=== PATIENT | female | born 1940 | race Caucasian/White ===

== ENCOUNTER 2017-02-12 17:02 | Emergency (ER) | payer OTHER, MEDICARE ==
--- NOTE | 2017-02-12 19:52 | DIAGNOSTIC IMAGING REPORT ---
PROCEDURE: CT ABDOMEN/PELVIS W/O CONTRAST INDICATION: Left flank pain and hematuria. History of cholecystectomy, splenectomy, hysterectomy, and bowel resection. TECHNIQUE: Noncontrast axial images were obtained of the entire abdomen and pelvis with sagittal and coronal reformations. COMPARISON: None. FINDINGS: ABDOMEN: There is mild dilation of the left renal collecting system, although left ureter appears normal (partially obscured by metal surgical clips). Right kidney and ureter are normal. Cholecystectomy (surgical clips). Liver is normal. Status post splenectomy with mild residual splenosis. Pancreas and aorta are normal. Small hiatal hernia. Bowel pattern is otherwise normal. Appendix is not clearly identified, but no evidence of inflammatory process). Mild levoscoliosis and marked degenerative changes of the lumbar spine. PELVIS: Moderate upper sigmoid diverticulosis, but no evidence of diverticulitis. Status post hysterectomy. Multiple surgical clips within the pelvis. No evidence of free fluid. IMPRESSION: 1. Left ureter is partially obscured by metal surgical clips. Allowing for this, there is no definite evidence of urinary tract obstruction. 2. Status post cholecystectomy and splenectomy. 3. Small hiatal hernia. 4. Moderate upper sigmoid diverticulosis, but no evidence of diverticulitis. 5. Status post hysterectomy. 6. Findings discussed with JIMMY uMse. All CT scans at this facility use dose modulation, iterative reconstruction, and/or weight-based dosing when appropriate to reduce radiation dose to as low as reasonably achievable.
--- NOTE | 2017-02-12 20:25 | ED ORDER SUMMARY ---
..... Patient: NICOLE LALA OrderSheet [facility] VisitID: [id number] [place] [address] 76y, F Registration Date/Time: 02/12/2017 ORDER SHEET Weight: 109.7 kg (stated) Allergies: Codeine, Gentamicin, Iodine, Vancomycin GENERAL ORDERS: CBC w Diff Urgent (18:05 02/12/2017 EKoroleva P.A.-C) (18:15 KWilliams R.N.) CMP Urgent (18:05 02/12/2017 EKoroleva P.A.-C) (18:15 KWilliams R.N.) UA-Culture if indicated Urgent (18:05 02/12/2017 EKoroleva P.A.-C) (Ack 18:41 RKaruga) (19:04 LSullivan R.N.) Lipase Urgent (18:05 02/12/2017 EKoroleva P.A.-C) (18:15 KWilliams R.N.) EKG - ER Stat (18:05 02/12/2017 EKoroleva P.A.-C) (18:59 RKaruga) CT Abd/Pel wo Cont Urgent (18:51 02/12/2017 EKoroleva P.A.-C) (Ack 19:02 RKaruga) (19:08 RFay) PT with INR Urgent (19:03 02/12/2017 EKoroleva P.A.-C) (19:04 LSullivan R.N.) PTT Urgent (19:03 02/12/2017 EKoroleva P.A.-C) (19:04 LSullivan R.N.) MEDICATION ORDERS: IV FLUIDS: IV Saline Lock (17:51 02/12/2017 LSullivan R.N. verbal order read back to Shikha SUERO) (17:51 LSullivan R.N.) IV Saline Lock (18:05 02/12/2017 EKoroleva P.A.-C) (Cancelled: Other18:11 EKoroleva P.A.-C) Dilaudid IV 0.5 mg (HIGH ALERT MEDICATION, NOW) (18:11 02/12/2017 Alfredo Smith-Sahil) (18:27 LSullivan R.N.) Ceftriaxone IV 2 gm/50mL (NOW) (19:54 02/12/2017 Alfredo Smith-C) (Ack 20:06 HSoule) (20:06 TBowen R.N.) Dilaudid IV 0.5 mg (HIGH ALERT MEDICATION, NOW) (20:08 02/12/2017 Alfredo High.Nivia-C) (20:15 TBowen R.N.) ORDER SHEET NOTES: [Electronically signed by Delilah Reid R.N. (20:38 02/12/2017)] [Electronically signed by Mayte Meyer P.A.-C (20:49 02/12/2017)] [Electronically locked/signed by Delilah Reid R.N. (20:38 02/12/2017)]
--- NOTE | 2017-02-12 20:25 | ED NURSING NOTES ---
Clinical Report - Nurses [address] [address] [place] [address] 02/12/2017 17:06 Patient: NICOLE LALA TRIAGE Triage time 17:28. Acuity: LEVEL 3. Chief Complaint: LEFT-SIDED FLANK PAIN (radiates to front pelvic area). Alert. --17:35 Samanta Novak R.N. 17:28 02/12/17. BP: 140/83. HR: 73. RR: 18. O2 saturation: 95%. Temp: 97.4 F. Pain level now: 05/16. --17:35 Samanta Novak R.N. Weight: 109.7 kg stated. Height/Length: 65 inches Per Patient. BMI: 40.3. --17:35 Samanta Novak R.N. Medications Warfarin Sodium Oral 5 mg, daily, for DVT, PE. --17:31 Samanta Novak R.N. Sertraline HCl Oral (Tablet 100 mg) 1 tablet, 1.5x/day. --18:11 Janelle Liu R.N. Hydrocodone-Acetaminophen Oral (Tablet 5-325 mg) 1 tablet, 3x a day as needed. --18:11 Janelle Liu R.N. Albuterol Sulfate HFA Inhalation 2 puffs, q 4-6 h as needed. --18:16 aJnelle Liu R.N. Atenolol Oral (Tablet 25 mg) 1 tablet, daily. --18:17 Janelle Liu R.N. Methocarbamol Oral (Tablet 750 mg) 1 tablet, as needed. --18:17 Janelle Liu R.N. Furosemide Oral (Tablet 20 mg) 1 tablet, daily. --18:17 Janelle Liu R.N. Potassium Chloride Oral 10 meq, daily. --18:18 Janelle Liu R.N. [place] 3 Oral. --18:18 Janelle Liu R.N. Cyanocobalamin Oral (Lozenge 5000 mcg). --18:18 Janelle Liu R.N. Loperamide HCl Oral (Tablet 2 mg) 1 tablet, daily. --18:18 Janelle Liu R.N. Gatifloxacin Ophthalmic (Solution 0.5 %), as needed. --18:19 Janelle Liu R.N. Prochlorperazine Maleate Oral (Tablet 10 mg) 1 tablet, 3x a day as needed. --18:21 Janelle Liu R.N. Cholecalciferol Oral (Tablet 2000 unit) 1 tablet, as needed. --18:22 Janelle Liu R.N. Elderberry Oral 2 tabs, daily, cold symptoms. --18:22 Janelle Liu R.N. Vitamin c Oral. --18:22 Janelle Liu R.N. Tolterodine Tartrate Oral (Tablet 1 mg) 1 tablet, 2x a day. --18:23 Janelle Liu R.N. Glycerin-Polysorbate 80 one drop, daily. --18:24 Janelle Liu R.N. Meclizine HCl Oral. --18:24 Janelle Liu R.N. Desonide External (Cream 0.05 %). --18:25 Janelle Liu R.N. Hydrocortisone External (Cream 2.5 %), 2x a day. --18:32 Janelle Liu R.N. The following entry was struck and corrected by Janelle Liu R.N., 18:36 (02/12/17) Reason for correction - other(correction). <<[facility] ENTRY-- Tolterodine Tartrate Oral. --18:23 Janelle Liu R.N. --END STRIKE>> The following entry was struck and corrected by Janelle Liu R.N., 18:36 (02/12/17) Reason for correction - other(correction). <<[facility] ENTRY-- Sertraline HCl Oral. --18:11 Janelle Liu R.N. --END STRIKE>> The following entry was struck and corrected by Janelle Liu R.N., 18:35 (02/12/17) Reason for correction - other(correction). <<[facility] ENTRY-- Prochlorperazine Maleate Oral. --18:21 Janelle Liu R.N. --END STRIKE>> The following entry was struck and corrected by Janelle Liu R.N., 18:35 (02/12/17) Reason for correction - other(correction). <<[facility] ENTRY-- Potassium Chloride Oral. --18:18 Janelle Liu R.N. --END STRIKE>> The following entry was struck and corrected by Janelle Liu R.N., 18:34 (02/12/17) Reason for correction - other(correction). <<[facility] ENTRY-- Methocarbamol Oral. --18:17 Janelle Liu R.N. --END STRIKE>> The following entry was struck and corrected by Janelle Liu R.N., 18:33 (02/12/17) Reason for correction - other(correction). <<[facility] ENTRY-- Loperamide HCl Oral. --18:18 Janelle Liu R.N. --END STRIKE>> The following entry was struck by Janelle Liu R.N., 18:32 (02/12/17) Reason - wrong value. <<[facility] ENTRY-- Hydrocortisone Oral. --18:22 Janelle Liu R.N. --END STRIKE>> The following entry was struck and corrected by Janelle Liu R.N., 18:31 (02/12/17) Reason for correction - other(correction). <<[facility] ENTRY-- Hydrocodone-Acetaminophen Oral. --18:11 Janelle Liu R.N. --END STRIKE>> The following entry was struck and corrected by Janelle Liu R.N., 18:30 (02/12/17) Reason for correction - other(correction). <<[facility] ENTRY-- Glycerin-Polysorbate 80. --18:24 Janelle Liu R.N. --END STRIKE>> The following entry was struck and corrected by Janelle Liu R.N., 18:30 (02/12/17) Reason for correction - other(correction). <<[facility] ENTRY-- Gatifloxacin Ophthalmic. --18:19 Janelle Liu R.N. --END STRIKE>> The following entry was struck and corrected by Janelle Liu R.N., 18:30 (02/12/17) Reason for correction - other(correction). <<[facility] ENTRY-- Furosemide Oral. --18:17 Janelle Liu R.N. --END STRIKE>> The following entry was struck and corrected by Janelle Liu R.N., 18:29 (02/12/17) Reason for correction - other(correction). <<[facility] ENTRY-- Elderberry Oral. --18:22 Janelle Liu R.NAudrey --END STRIKE>> The following entry was struck and corrected by Janelle Liu R.N., 18:28 (02/12/17) Reason for correction - other(correction). <<[facility] ENTRY-- Desonide External. --18:25 Janelle Liu R.N. --END STRIKE>> The following entry was struck and corrected by Janelle Liu R.N., 18:28 (02/12/17) Reason for correction - other(correction). <<[facility] ENTRY-- Cyanocobalamin Oral. --18:18 Janelle Liu R.N. --END STRIKE>> The following entry was struck and corrected by Janelle Liu R.NAudrey, 18:27 (02/12/17) Reason for correction - other(correction). <<[facility] ENTRY-- Cholecalciferol Oral. --18:22 Janelle Liu R.NAudrey --END STRIKE>> The following entry was struck and corrected by Janelle Liu R.N., 18:26 (02/12/17) Reason for correction - other(correction). <<[facility] ENTRY-- Atenolol Oral. --18:17 Alexa, Janelle, R.N. --END STRIKE>> The following entry was struck and corrected by Janelle Liu R.N., 18:25 (02/12/17) Reason for correction - other(correction). <<[facility] ENTRY-- Albuterol Sulfate HFA Inhalation. --18:16 Janelle Liu R.N. --END STRIKE>>. Allergies Codeine. Gentamicin. Iodine. Vancomycin. --17:31 Samanta Novak R.N. History Arrived by private vehicle. Historian: patient. Accompanied by spouse. Primary physician (Fili). This started today. Onset. (at 10am). 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 PAST MEDICAL HX: Immunizations: up-to-date. SOCIAL HX: Never smoker. No alcohol use or drug use. FUNCTIONAL ASSESSMENT: Functional assessment: no impairments noted. LEARNING NEEDS ASSESSMENT: The learning needs assessment revealed no barriers. ABUSE ASSESSMENT: Abuse assessment: ('yes") The patient was asked "Do you feel safe in your home?". --17:35 Samanta Novak R.N. PROBLEMS: Hypertension. Migraine Headache. CHF. Multinodular goiter. Anxiety Reaction. Lumbar spinal stenosis. Impingement syndrome of shoulder region. Gerd. Depression. Pulmonary Embolism. Asplenia. GINNY. Lung nodule. Osteopenia. Asthma. --18:41 Samanta Novak R.N. ADDITIONAL SURGERIES: Appendectomy. Cholecystectomy. Colectomy. Hysterectomy. Knee Surgery. Splenectomy. Tonsillectomy. --18:49 Samanta Novak R.N. Interventions ID band on patient. To room. --17:35 Samanta Novak R.N. NURSING PROGRESS NOTES 17:36 02/12/2017 Site #1 started via IV in the right forearm with an 20g angiocath, with aseptic technique and good blood return; one attempt. Blood drawn: rainbow set. Labeled in the presence of the patient and sent to the lab. Saline lock flushed with 10 mL saline. --17:51 Crystal Pride R.N. 18:17 02/12/2017 Dilaudid (HYDROmorphone HCl PF) IVP 0.5 mg given over 1 minute(s) via site #1. Allergies verified, confirmed 5 rights and sedative warning given. --18:27 Samanta Novak R.N. EKG time: (18:52). EKG was performed and shown to the ED physician. --19:00 Ernestina Vela Patient ID band checked for patient name and birthdate: patient confirmed urine collected with return of yellow-colored urine; sample sent to lab for urinalysis. Specimen labeled in the presence of the patient. --19:09 Ernestina Vela 19:15 02/12/17. Care transferred and report given (to JAIME Mazariegos). --19:15 Samanta Novak R.N. 20:06 02/12/2017 Started 2 gm of Ceftriaxone IVPB in bag #1 50 mL; at 100 mL/hr over 30 minute(s) via site #1 via IV pump. Allergies verified and confirmed 5 rights. IV patency established. IV site checked: no pain, redness, or swelling. IV flushed thoroughly pre- and post-medication administration. --20:06 Goran Matos 20:15 02/12/2017 Dilaudid (HYDROmorphone HCl PF) IVP 0.5 mg given over 1 minute(s) via site #1. Allergies verified, confirmed 5 rights and sedative warning given to the patient. IV patency established. IV site checked: no pain, redness, or swelling. IV flushed thoroughly pre- and post-medication administration. IVP given by RN. --20:15 Goran Matos 20:21 02/12/2017 Ceftriaxone IVPB Discontinued: bag #1 completed. Total amount infused: 50 mL. IV patency established. IV site checked: no pain, redness, or swelling. IV flushed thoroughly. --20:21 Goran Matos DISPOSITION / DISCHARGE 20:36 02/12/2017 Site #1 removed upon discharge. Catheter intact. Bandaid applied. --20:36 Goran Matos Departure time: 20:37. Condition at departure: improved. No learning barriers present. Discharge instructions provided and reviewed with the patient. Reviewed medication(s) side effects, precautions, dosing and course information. Prescription(s) given to the patient. Follow up contact number with PCP. Patient verbalized understanding. Written instructions provided in Mexican. No warning instructions, treatment instructions, referrals given to the patient, diet instructions or activity restrictions. No note given or stop smoking instructions. The patient was discharged by the physician optometry assistant. She was discharged home and accompanied by spouse. She left the Emergency Department in a wheelchair and via private vehicle. Spouse driving. FALL RISK ASSESSMENT: Fall risk assessment completed. No fall risk identified. --20:37 Goran Matos 20:35 02/12/17. BP: 142/62. HR: 78. RR: 18. O2 saturation: 98%. Temp: 98.4 F. Pain level now: 0/10. --20:37 Goran Matos Locked/Released at 02/12/2017 20:38 by Goran Matos
--- NOTE | 2017-02-12 20:25 | ED NURSING NOTES ---
Clinical Report - Nurses [address] [address] [place] [address] 02/12/2017 17:06 Patient: NICOLE LALA TRIAGE Triage time 17:28. Acuity: LEVEL 3. Chief Complaint: LEFT-SIDED FLANK PAIN (radiates to front pelvic area). Alert. --17:35 Samanta Novak R.N. 17:28 02/12/17. BP: 140/83. HR: 73. RR: 18. O2 saturation: 95%. Temp: 97.4 F. Pain level now: 05/16. --17:35 Samanta Novak R.N. Weight: 109.7 kg stated. Height/Length: 65 inches Per Patient. BMI: 40.3. --17:35 Samanta Novak R.N. Medications Warfarin Sodium Oral 5 mg, daily, for DVT, PE. --17:31 Samanta Novak R.N. Sertraline HCl Oral (Tablet 100 mg) 1 tablet, 1.5x/day. --18:11 Janelle Liu R.N. Hydrocodone-Acetaminophen Oral (Tablet 5-325 mg) 1 tablet, 3x a day as needed. --18:11 Janelle Liu R.N. Albuterol Sulfate HFA Inhalation 2 puffs, q 4-6 h as needed. --18:16 Janelle Liu R.N. Atenolol Oral (Tablet 25 mg) 1 tablet, daily. --18:17 Janelle Liu R.N. Methocarbamol Oral (Tablet 750 mg) 1 tablet, as needed. --18:17 Janelle Liu R.N. Furosemide Oral (Tablet 20 mg) 1 tablet, daily. --18:17 Janelle Liu R.N. Potassium Chloride Oral 10 meq, daily. --18:18 Janelle Liu R.N. [place] 3 Oral. --18:18 Janelle Liu R.N. Cyanocobalamin Oral (Lozenge 5000 mcg). --18:18 Janelle Liu R.N. Loperamide HCl Oral (Tablet 2 mg) 1 tablet, daily. --18:18 Janelle Liu R.N. Gatifloxacin Ophthalmic (Solution 0.5 %), as needed. --18:19 Janelle Liu R.N. Prochlorperazine Maleate Oral (Tablet 10 mg) 1 tablet, 3x a day as needed. --18:21 Janelle Liu R.N. Cholecalciferol Oral (Tablet 2000 unit) 1 tablet, as needed. --18:22 Janelle Liu R.N. Elderberry Oral 2 tabs, daily, cold symptoms. --18:22 Janelle Liu R.N. Vitamin c Oral. --18:22 Janelle Liu R.N. Tolterodine Tartrate Oral (Tablet 1 mg) 1 tablet, 2x a day. --18:23 Janelle Liu R.N. Glycerin-Polysorbate 80 one drop, daily. --18:24 Janelle Liu R.N. Meclizine HCl Oral. --18:24 Janelle Liu R.N. Desonide External (Cream 0.05 %). --18:25 Janelle Liu R.N. Hydrocortisone External (Cream 2.5 %), 2x a day. --18:32 Janelle Liu R.N. The following entry was struck and corrected by Janelle Liu R.N., 18:36 (02/12/17) Reason for correction - other(correction). <<[facility] ENTRY-- Tolterodine Tartrate Oral. --18:23 Janelle Liu R.N. --END STRIKE>> The following entry was struck and corrected by Janelle Liu R.N., 18:36 (02/12/17) Reason for correction - other(correction). <<[facility] ENTRY-- Sertraline HCl Oral. --18:11 Janelle Liu R.N. --END STRIKE>> The following entry was struck and corrected by Janelle Liu R.N., 18:35 (02/12/17) Reason for correction - other(correction). <<[facility] ENTRY-- Prochlorperazine Maleate Oral. --18:21 Janelle Liu R.N. --END STRIKE>> The following entry was struck and corrected by Janelle Liu R.N., 18:35 (02/12/17) Reason for correction - other(correction). <<[facility] ENTRY-- Potassium Chloride Oral. --18:18 Janelle Liu R.N. --END STRIKE>> The following entry was struck and corrected by Janelle Liu R.N., 18:34 (02/12/17) Reason for correction - other(correction). <<[facility] ENTRY-- Methocarbamol Oral. --18:17 Janelle Liu R.N. --END STRIKE>> The following entry was struck and corrected by Janelle Liu R.N., 18:33 (02/12/17) Reason for correction - other(correction). <<[facility] ENTRY-- Loperamide HCl Oral. --18:18 Janelle Liu R.N. --END STRIKE>> The following entry was struck by Janelle Liu R.N., 18:32 (02/12/17) Reason - wrong value. <<[facility] ENTRY-- Hydrocortisone Oral. --18:22 Janelle Liu R.N. --END STRIKE>> The following entry was struck and corrected by Janelle Liu R.N., 18:31 (02/12/17) Reason for correction - other(correction). <<[facility] ENTRY-- Hydrocodone-Acetaminophen Oral. --18:11 Janelle Liu R.N. --END STRIKE>> The following entry was struck and corrected by Janelle Liu R.N., 18:30 (02/12/17) Reason for correction - other(correction). <<[facility] ENTRY-- Glycerin-Polysorbate 80. --18:24 Janelle Liu R.N. --END STRIKE>> The following entry was struck and corrected by Janelle Liu R.N., 18:30 (02/12/17) Reason for correction - other(correction). <<[facility] ENTRY-- Gatifloxacin Ophthalmic. --18:19 Janelle Liu R.N. --END STRIKE>> The following entry was struck and corrected by Janelle Liu R.N., 18:30 (02/12/17) Reason for correction - other(correction). <<[facility] ENTRY-- Furosemide Oral. --18:17 Janelle Liu R.N. --END STRIKE>> The following entry was struck and corrected by Janelle Liu R.N., 18:29 (02/12/17) Reason for correction - other(correction). <<[facility] ENTRY-- Elderberry Oral. --18:22 Janelle Liu R.NAudrey --END STRIKE>> The following entry was struck and corrected by Janelle Liu R.N., 18:28 (02/12/17) Reason for correction - other(correction). <<[facility] ENTRY-- Desonide External. --18:25 Janelle Liu R.N. --END STRIKE>> The following entry was struck and corrected by Janelle Liu R.N., 18:28 (02/12/17) Reason for correction - other(correction). <<[facility] ENTRY-- Cyanocobalamin Oral. --18:18 Janelle Liu R.N. --END STRIKE>> The following entry was struck and corrected by Janelle Liu R.NAudrey, 18:27 (02/12/17) Reason for correction - other(correction). <<[facility] ENTRY-- Cholecalciferol Oral. --18:22 Janelle Liu R.NAudrey --END STRIKE>> The following entry was struck and corrected by Janelle Liu R.N., 18:26 (02/12/17) Reason for correction - other(correction). <<[facility] ENTRY-- Atenolol Oral. --18:17 Alexa, Janelle, R.N. --END STRIKE>> The following entry was struck and corrected by Janelle Liu R.N., 18:25 (02/12/17) Reason for correction - other(correction). <<[facility] ENTRY-- Albuterol Sulfate HFA Inhalation. --18:16 Janelle Liu R.N. --END STRIKE>>. Allergies Codeine. Gentamicin. Iodine. Vancomycin. --17:31 Samanta Novak R.N. History Arrived by private vehicle. Historian: patient. Accompanied by spouse. Primary physician (Fili). This started today. Onset. (at 10am). 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 PAST MEDICAL HX: Immunizations: up-to-date. SOCIAL HX: Never smoker. No alcohol use or drug use. FUNCTIONAL ASSESSMENT: Functional assessment: no impairments noted. LEARNING NEEDS ASSESSMENT: The learning needs assessment revealed no barriers. ABUSE ASSESSMENT: Abuse assessment: ('yes") The patient was asked "Do you feel safe in your home?". --17:35 Samanta Novak R.N. PROBLEMS: Hypertension. Migraine Headache. CHF. Multinodular goiter. Anxiety Reaction. Lumbar spinal stenosis. Impingement syndrome of shoulder region. Gerd. Depression. Pulmonary Embolism. Asplenia. GINNY. Lung nodule. Osteopenia. Asthma. --18:41 Samanta Novak R.N. ADDITIONAL SURGERIES: Appendectomy. Cholecystectomy. Colectomy. Hysterectomy. Knee Surgery. Splenectomy. Tonsillectomy. --18:49 Samanta Novak R.N. Interventions ID band on patient. To room. --17:35 Samanta Novak R.N. NURSING PROGRESS NOTES 17:36 02/12/2017 Site #1 started via IV in the right forearm with an 20g angiocath, with aseptic technique and good blood return; one attempt. Blood drawn: rainbow set. Labeled in the presence of the patient and sent to the lab. Saline lock flushed with 10 mL saline. --17:51 Crystal Pride R.N. 18:17 02/12/2017 Dilaudid (HYDROmorphone HCl PF) IVP 0.5 mg given over 1 minute(s) via site #1. Allergies verified, confirmed 5 rights and sedative warning given. --18:27 Samanta Novak R.N. EKG time: (18:52). EKG was performed and shown to the ED physician. --19:00 Ernestina Vela Patient ID band checked for patient name and birthdate: patient confirmed urine collected with return of yellow-colored urine; sample sent to lab for urinalysis. Specimen labeled in the presence of the patient. --19:09 Ernestina Vela 19:15 02/12/17. Care transferred and report given (to JAIME Mazariegos). --19:15 Samanta Novak R.N. 20:06 02/12/2017 Started 2 gm of Ceftriaxone IVPB in bag #1 50 mL; at 100 mL/hr over 30 minute(s) via site #1 via IV pump. Allergies verified and confirmed 5 rights. IV patency established. IV site checked: no pain, redness, or swelling. IV flushed thoroughly pre- and post-medication administration. --20:06 Goran Matos 20:15 02/12/2017 Dilaudid (HYDROmorphone HCl PF) IVP 0.5 mg given over 1 minute(s) via site #1. Allergies verified, confirmed 5 rights and sedative warning given to the patient. IV patency established. IV site checked: no pain, redness, or swelling. IV flushed thoroughly pre- and post-medication administration. IVP given by RN. --20:15 Goran Matos 20:21 02/12/2017 Ceftriaxone IVPB Discontinued: bag #1 completed. Total amount infused: 50 mL. IV patency established. IV site checked: no pain, redness, or swelling. IV flushed thoroughly. --20:21 Goran Matos DISPOSITION / DISCHARGE 20:36 02/12/2017 Site #1 removed upon discharge. Catheter intact. Bandaid applied. --20:36 Goran Matos Departure time: 20:37. Condition at departure: improved. No learning barriers present. Discharge instructions provided and reviewed with the patient. Reviewed medication(s) side effects, precautions, dosing and course information. Prescription(s) given to the patient. Follow up contact number with PCP. Patient verbalized understanding. Written instructions provided in Jamaican. No warning instructions, treatment instructions, referrals given to the patient, diet instructions or activity restrictions. No note given or stop smoking instructions. The patient was discharged by the physician occupational therapy assistant. She was discharged home and accompanied by spouse. She left the Emergency Department in a wheelchair and via private vehicle. Spouse driving. FALL RISK ASSESSMENT: Fall risk assessment completed. No fall risk identified. --20:37 Goran Matos 20:35 02/12/17. BP: 142/62. HR: 78. RR: 18. O2 saturation: 98%. Temp: 98.4 F. Pain level now: 0/10. --20:37 Goran Matos Locked/Released at 02/12/2017 20:38 by Goran Matos
--- NOTE | 2017-02-12 20:25 | ED CLINICAL REPORT ---
Clinical Report - Physicians/Mid Levels [facility] [address] [place] [address] 02/12/2017 17:06 Patient: NICOLE LALA Time Seen: 18:22 Feb 12 2017. Arrived- By private vehicle. Historian- patient. HISTORY OF PRESENT ILLNESS Chief Complaint: FLANK PAIN. It is described as "pain" and it is described as located in the left flank. This started just prior to arrival and is still present. No nausea or loss of appetite. (She reports flank pain since 10 AM today. Reports pain radiating to her pelvis. Denies any urgency or frequency. Was seen at the urgent care clinic prior to arrival, was told she has a kidney stone, and to the ER for further evaluation. Patient denies history of nephrolithiasis. Denies any fevers. She has had a few falls. Denies any fevers, shortness of breath or chest pain. Reports history of CHF, patient on water restrictions, as well as). REVIEW OF SYSTEMS No difficulty with urination, pain with urination, fever, headache or sore throat. No chills. All systems otherwise negative, except as recorded above. PAST HISTORY Problems: Hypertension. Migraine Headache. CHF. Multinodular goiter. Anxiety Reaction. Lumbar spinal stenosis. Impingement syndrome of shoulder region. Gerd. Depression. Pulmonary Embolism. Asplenia. GINNY. Lung nodule. Osteopenia. Asthma. Additional Surgeries: Appendectomy. Cholecystectomy. Colectomy. Hysterectomy. Knee Surgery. Splenectomy. Tonsillectomy. Medications: Hydrocortisone External (Cream 2.5 %), 2x a day. Desonide External (Cream 0.05 %). Meclizine HCl Oral. Glycerin-Polysorbate 80 one drop, daily. Tolterodine Tartrate Oral (Tablet 1 mg) 1 tablet, 2x a day. Vitamin c Oral. Elderberry Oral 2 tabs, daily, cold symptoms. Cholecalciferol Oral (Tablet 2000 unit) 1 tablet, as needed. Prochlorperazine Maleate Oral (Tablet 10 mg) 1 tablet, 3x a day as needed. Gatifloxacin Ophthalmic (Solution 0.5 %), as needed. Loperamide HCl Oral (Tablet 2 mg) 1 tablet, daily. Cyanocobalamin Oral (Lozenge 5000 mcg). [place] 3 Oral. Potassium Chloride Oral 10 meq, daily. Furosemide Oral (Tablet 20 mg) 1 tablet, daily. Methocarbamol Oral (Tablet 750 mg) 1 tablet, as needed. Atenolol Oral (Tablet 25 mg) 1 tablet, daily. Albuterol Sulfate HFA Inhalation 2 puffs, q 4-6 h as needed. Hydrocodone-Acetaminophen Oral (Tablet 5-325 mg) 1 tablet, 3x a day as needed. Sertraline HCl Oral (Tablet 100 mg) 1 tablet, 1.5x/day. Warfarin Sodium Oral 5 mg, daily, for DVT, PE. Allergies: Codeine. Gentamicin. Iodine. Vancomycin. SOCIAL HISTORY Never smoker. No alcohol use. ADDITIONAL NOTES The nursing notes have been reviewed. PHYSICAL EXAM Vital Signs: 02/12/2017 17:28 BP: 140/83. HR: 73. RR: 18. O2 saturation: 95%. Temp: 97.4 F. Pain level now: 7/10. Appearance: Alert. No acute distress. Eyes: Eyes normal inspection. ENT: Nose normal. No pharyngeal erythema or tonsillar exudate. Neck: Normal inspection. No lymphadenopathy. CVS: Normal heart rate and rhythm. Respiratory: No respiratory distress. Breath sounds normal. No decreased air movement. Abdomen: Mild tenderness in the left side of the abdomen. No organomegaly. No mass. Back: Normal inspection. No CVA tenderness. Neuro: Oriented X 3. LABS, X-RAYS, AND EKG EKG: EKG time: (1852). No acute process. No acute ischemia. Rate: 69. Laboratory Tests: UA-Culture if indicated: (JAYMIE: 02/12/2017 18:55) ( MsgRcvd 02/12/2017 19:22) Final results Test Result Flag Units (Reference) URINE COLOR YELLOW URINE APPEARANCE SL CLOUDY URINE GLUCOSE NEGATIVE (NEGATIVE) URINE BILIRUBIN NEGATIVE (NEGATIVE) URINE KETONE NEGATIVE (NEGATIVE) URINE SPECIFIC GRAVITY 1.020 (1.010-1.030) URINE PH 6.0 (5.0-8.0) URINE PROTEIN NEGATIVE (NEGATIVE) URINE UROBILINOGEN 0.2 EU/dL (0.2-1.0) URINE NITRITE POSITIVE (NEGATIVE) URINE BLOOD 1+ (NEGATIVE) URINE LEUK ESTERASE NEGATIVE (NEGATIVE) URINE RBC NONE SEEN rbc/hpf (0-1) URINE WBC 5-10 wbc/hpf (0-1) URINE EPITHELIAL CELLS 3-5 EPI/hpf (0-5) URINE BACTERIA MANY (4+) (NONE SEEN) URINE COMMENT CULTURE INDICATED URINE CULTURES ARE SET-UP BASED ON THE FOLLOWING CRITERIA:POSITIVE NITRITEPOSITIVE LEUKOCYTE ESTERASEGREATER THAN 10 WHITE BLOOD CELLSMODERATE (2+) OR GREATER BACTERIA CBC w Diff: (JAYMIE: 02/12/2017 17:45) ( [facility] 02/12/2017 18:16) Final results Test Result Flag Units (Reference) WHITE BLOOD COUNT 13.6 H K/uL (4.5-11.5) RED BLOOD COUNT 4.88 M/uL (4.00-5.20) HEMOGLOBIN 14.7 gm/dL (12.0-16.0) HEMATOCRIT 44.7 % (36.0-46.0) MEAN CELL VOLUME 92 fL (80-100) MEAN CORPUSCULAR HGB 30 pg (26-34) MEAN CORPUSCULAR HGB CONC 33 g/dL (31-37) RED CELL DISTRIBUTION WIDTH 15.6 H % (11.6-14.8) PLATELET COUNT 387 K/uL (150-400) NEUTROPHIL % 67.9 % (50-75) LYMPH % 26.3 % (25-40) MONO % 4.2 % (3-14) EOSINOPHIL % 1.0 % (0-4) BASOPHIL % 0.6 % (0-2) PT with INR: (JAYMIE: 02/12/2017 18:15) ( [facility] 02/12/2017 19:32) Final results Test Result Flag Units (Reference) INR 2.6 H (0.8-1.2) Low Intensity Therapy: INR 1.5-2.0 PT range 18.5-23.1Mod.Intensity Therapy: INR 2.0-3.0 PT range 23.1-31.5High Intensity Therapy: INR 2.5-3.5 PT range 27.4-35.5High Intensity Therapy 2: INR 3.0-4.0 PT range 31.5-39.3 APTT 40 H SECONDS (24-34) CMP: (JAYMIE: 02/12/2017 17:45) ( MsgRcvd 02/12/2017 18:43) Final results Test Result Flag Units (Reference) GLUCOSE 113 H mg/dL (70-110) BUN 13 mg/dL (7-18) CREATININE 0.9 mg/dL (0.6-1.3) Estimated GFR >60 mL/min Estimated GFR- >60 mL/min Note: Persistent reduction over 3 months in eGFR<60 mL/min/1.73 m2 defines CKD. Patients with eGFR values>=60 mL/min/1.73 m2 may also have CKD if evidence ofpersistent proteinuria. Additional information may be foundat www.[email or web address].org. SODIUM 136 mmol/L (136-145) POTASSIUM 4.1 mmol/L (3.5-5.1) CHLORIDE 102 mmol/L (98-107) CARBON DIOXIDE 27 mmol/L (21-32) CALCIUM 9.2 mg/dL (8.5-10.1) TOTAL PROTEIN 8.3 H g/dL (6.4-8.2) ALBUMIN 3.6 g/dL (3.3-5.0) BILIRUBIN, TOTAL 0.3 mg/dL (0.0-1.0) ALKALINE PHOSPHATASE 108 U/L (46-116) AST (SGOT) 25 U/L (15-37) ALT (SGPT) 19 U/L (12-78) LIPASE 99 U/L (73-393) . PROGRESS AND PROCEDURES Course of Care: Patient is very stable, INR today is 2.6. CT of pelvis with no obvious signs of [place], no obvious signs of obstruction, however the renal pelvis is slightly obstructed by some clips. Discussed this with the patient. Signs and bacteria in urine, given flank pain we'll treat for early pyelo-with IV antibiotics ceftriaxone 2 mg given here. Patient is on fluid restrictions, she twaels, Lasix for her chronic bilateral pedal edema, as well as history of CHF. No signs of pedal edema now. Lungs clear. EKG unremarkable with any acute changes. Patient has no chest pain or shortness of breath. 02/12/2017 20:35 BP: 142/62. HR: 78. RR: 18. O2 saturation: 98%. Temp: 98.4 F. Pain level now: 0/10. Patient is stable. Symptoms better. Patient/family counseled. Differential Diagnosis: I considered gastritis, gastroenteritis, acute appendicitis, mesenteric lymphadenitis, Meckel's diverticulum, diverticulitis, colon cancer, small bowel obstruction, adhesions, biliary colic, hepatitis, splenic injury, splenic rupture, intraabdominal abscess, urinary tract infection, cystitis, ovarian cyst, pelvic inflammatory disease, pelvic abscess, abdominal aortic aneurysm, pneumonia, diabetic ketoacidosis and medications as a possible cause of abdominal pain in this patient. This is a partial list of diagnoses considered. Disposition: Discharged. CLINICAL IMPRESSION Acute pyelonephritis INSTRUCTIONS Drink plenty of fluids. (repeat inr levels in 4-5 days, today 2.6). Warnings: Further evaluation is necessary. Prescription Medications: Hydrocodone/APAP 5mg / 325mg: take 1 orally every 6 hours as needed for pain. Dispense fifteen (15). No refill. Cephalexin 500 mg: take 1 capsule orally every 8 hours for 10 days. No refill. Follow-up: Follow up with your doctor in three. (Electronically signed by Mayte Meyer P.A.-C 02/12/2017 20:49)
--- NOTE | 2017-02-12 20:25 | ED ORDER SUMMARY ---
..... Patient: NICOLE LALA OrderSheet [facility] VisitID: [id number] [place] [address] 76y, F Registration Date/Time: 02/12/2017 ORDER SHEET Weight: 109.7 kg (stated) Allergies: Codeine, Gentamicin, Iodine, Vancomycin GENERAL ORDERS: CBC w Diff Urgent (18:05 02/12/2017 EKoroleva P.A.-C) (18:15 KWilliams R.N.) CMP Urgent (18:05 02/12/2017 EKoroleva P.A.-C) (18:15 KWilliams R.N.) UA-Culture if indicated Urgent (18:05 02/12/2017 EKoroleva P.A.-C) (Ack 18:41 RKaruga) (19:04 LSullivan R.N.) Lipase Urgent (18:05 02/12/2017 EKoroleva P.A.-C) (18:15 KWilliams R.N.) EKG - ER Stat (18:05 02/12/2017 EKoroleva P.A.-C) (18:59 RKaruga) CT Abd/Pel wo Cont Urgent (18:51 02/12/2017 EKoroleva P.A.-C) (Ack 19:02 RKaruga) (19:08 RFay) PT with INR Urgent (19:03 02/12/2017 EKoroleva P.A.-C) (19:04 LSullivan R.N.) PTT Urgent (19:03 02/12/2017 EKoroleva P.A.-C) (19:04 LSullivan R.N.) MEDICATION ORDERS: IV FLUIDS: IV Saline Lock (17:51 02/12/2017 LSullivan R.N. verbal order read back to Shikha SUERO) (17:51 LSullivan R.N.) IV Saline Lock (18:05 02/12/2017 EKoroleva P.A.-C) (Cancelled: Other18:11 EKoroleva P.A.-C) Dilaudid IV 0.5 mg (HIGH ALERT MEDICATION, NOW) (18:11 02/12/2017 Alfredo Smith-Sahil) (18:27 LSullivan R.N.) Ceftriaxone IV 2 gm/50mL (NOW) (19:54 02/12/2017 Alfredo Smith-C) (Ack 20:06 HSoule) (20:06 TBowen R.N.) Dilaudid IV 0.5 mg (HIGH ALERT MEDICATION, NOW) (20:08 02/12/2017 Alfredo High.Nivia-C) (20:15 TBowen R.N.) ORDER SHEET NOTES: [Electronically signed by Delilah Reid R.N. (20:38 02/12/2017)] [Electronically signed by Mayte Meyer P.A.-C (20:49 02/12/2017)] [Electronically locked/signed by Delilah Reid R.N. (20:38 02/12/2017)]
--- NOTE | 2017-02-12 20:50 | ED MAR SUMMARY ---
..... Medication Administration Record [facility] [address] [place] [address] Patient: NICOLE LALA Visit ID: [id number] 76y, F Weight: 109.7 kg Height/Length: 65 in BMI: 40.3 ALLERGIES: Gentamicin, Vancomycin, Codeine, Iodine Given 18:17 02/12/2017 Samanta Novak RDaniel Medication Administered: DILAUDID [IVP] (HYDROMORPHONE HCL PF), Dose: 0.5 mg IVP over 1 minute(s), Site: #1 right forearm. Medication Ordered: Dilaudid IV 0.5 mg (HIGH ALERT MEDICATION, NOW). Start 20:06 02/12/2017 Carlo RDaniel, Stop 20:21 02/12/2017 Goran Matos Medication Administered: CEFTRIAXONE [IVPB], Dose: 2 gm IVPB over 30 minute(s), Rate: 100 mL/hr, Dispensed: 50 mL bag, Site: #1 right forearm. Medication Ordered: Ceftriaxone IV 2 gm/50mL (NOW). Given 20:15 02/12/2017 Goran Matos Medication Administered: DILAUDID [IVP] (HYDROMORPHONE HCL PF), Dose: 0.5 mg IVP over 1 minute(s), Site: #1 right forearm. Medication Ordered: Dilaudid IV 0.5 mg (HIGH ALERT MEDICATION, NOW).
--- NOTE | 2017-02-12 20:50 | ED DISCHARGE INSTRUCTIONS ---
Patient: NICOLE LALA General Instructions [facility] VisitID: [id number] [place] [address] 76y, F Registration Date/Time: 02/12/2017 Acute pyelonephritis INSTRUCTIONS Drink plenty of fluids. (repeat inr levels in 4-5 days, today 2.6). Warnings: Further evaluation is necessary. Prescription Medications: Hydrocodone/APAP 5mg / 325mg: take 1 orally every 6 hours as needed for pain. Dispense fifteen (15). No refill. Cephalexin 500 mg: take 1 capsule orally every 8 hours for 10 days. No refill. Follow-up: Follow up with your doctor in three. ADDITIONAL INFORMATION Kidney Infection [Adult, Female] An infection of the kidney is also called "pyelonephritis". It usually starts as a bladder infection ("cystitis") which spreads to the kidneys. Pyelonephritis is more serious than a bladder infection. It can cause severe illness if not treated properly. The usual symptoms include an aching pain in the back, side or lower abdomen. Other symptoms may include fever, chills, nausea, vomiting, an urge to urinate and a burning sensation when passing urine. Home Care: Stay home from work or school. Rest in bed until your fever breaks and you are feeling better. Drink lots of fluid (at least 6-8 glasses a day, unless you must restrict fluids for other medical reasons). This will force the medicine into your urinary system and flush the bacteria out of your body. Avoid sexual intercourse until you have finished all of your medicine and your symptoms have gone away. Avoid caffeine, alcohol and spicy foods which may irritate the kidney and bladder. You may use acetaminophen (Tylenol) or ibuprofen (Motrin, Advil) to control pain, unless another pain medicine was prescribed. [NOTE: If you have chronic liver or kidney disease or ever had a stomach ulcer or GI bleeding, talk with your doctor before using these medicines.] Follow Up with your doctor or as advised by our staff for a repeat urine test in 10 days. This will ensure that your infection is fully cleared. [NOTE: If you had an X-ray or CT scan, it will be reviewed by a specialist. You will be notified of any new findings that may affect your care.] Get Prompt Medical Attention if any of the following occur: Fever over 100.4F (38.0C) after 48 hours of treatment No improvement by the third day of treatment Increasing back or abdominal pain Repeated vomiting or inability to take oral medicine Weakness, dizziness or fainting Hydrocodone Bitartrate, Acetaminophen Oral tablet What is this medicine? ACETAMINOPHEN; HYDROCODONE (a set a QUE eneida fen; marlon droe KOE done) is a pain reliever. It is used to treat mild to moderate pain. How should I use this medicine? Take this medicine by mouth. Swallow it with a full glass of water. Follow the directions on the prescription label. If the medicine upsets your stomach, take the medicine with food or milk. Do not take more than you are told to take. Talk to your horse rider regarding the use of this medicine in children. This medicine is not approved for use in children. What side effects may I notice from receiving this medicine? Side effects that you should report to your doctor or health customer care team coach as soon as possible: allergic reactions like skin rash, itching or hives, swelling of the face, lips, or tongue breathing problems confusion feeling faint or lightheaded, falls stomach pain yellowing of the eyes or skin Side effects that usually do not require medical attention (report to your doctor or health customer care team coach if they continue or are bothersome): nausea, vomiting stomach upset What may interact with this medicine? alcohol antihistamines isoniazid medicines for depression, anxiety, or psychotic disturbances medicines for sleep muscle relaxants naltrexone narcotic medicines (opiates) for pain phenobarbital ritonavir tramadol What if I miss a dose? If you miss a dose, take it as soon as you can. If it is almost time for your next dose, take only that dose. Do not take double or extra doses. Where should I keep my medicine? Keep out of the reach of children. This medicine can be abused. Keep your medicine in a safe place to protect it from theft. Do not share this medicine with anyone. Selling or giving away this medicine is dangerous and against the law. Store at room temperature between 15 and 30 degrees C (59 and 86 degrees F). Protect from light. Keep container tightly closed. Throw away any unused medicine after the expiration date. Discard unused medicine and used packaging carefully. Pets and children can be harmed if they find used or lost packages. What should I tell my health care provider before I take this medicine? They need to know if you have any of these conditions: brain tumor Crohn's disease, inflammatory bowel disease, or ulcerative colitis drink more than 3 alcohol-containing drinks per day drug abuse or addiction head injury heart or circulation problems kidney disease or problems going to the bathroom liver disease lung disease, asthma, or breathing problems an unusual or allergic reaction to acetaminophen, hydrocodone, other opioid analgesics, other medicines, foods, dyes, or preservatives or trying to get breast-feeding What should I watch for while using this medicine? Tell your doctor or health customer care team coach if your pain does not go away, if it gets worse, or if you have new or a different type of pain. You may develop tolerance to the medicine. Tolerance means that you will need a higher dose of the medicine for pain relief. Tolerance is normal and is expected if you take the medicine for a long time. Do not suddenly stop taking your medicine because you may develop a severe reaction. Your body becomes used to the medicine. This does NOT mean you are addicted. Addiction is a behavior related to getting and using a drug for a non-medical reason. If you have pain, you have a medical reason to take pain medicine. Your doctor will tell you how much medicine to take. If your doctor wants you to stop the medicine, the dose will be slowly lowered over time to avoid any side effects. You may get drowsy or dizzy when you first start taking the medicine or change doses. Do not drive, use machinery, or do anything that may be dangerous until you know how the medicine affects you. Stand or sit up slowly. There are different types of narcotic medicines (opiates) for pain. If you take more than one type at the same time, you may have more side effects. Give your health care provider a list of all medicines you use. Your doctor will tell you how much medicine to take. Do not take more medicine than directed. Call emergency for help if you have problems breathing. The medicine will cause constipation. Try to have a bowel movement at least every 2 to 3 days. If you do not have a bowel movement for 3 days, call your doctor or health customer care team coach. Too much acetaminophen can be very dangerous. Do not take Tylenol (acetaminophen) or medicines that contain acetaminophen with this medicine. Many non-prescription medicines contain acetaminophen. Always read the labels carefully. Cephalexin Monohydrate Oral tablet What is this medicine? CEPHALEXIN (sef a FABIAN in) is a cephalosporin antibiotic. It is used to treat certain kinds of bacterial infections It will not work for colds, flu, or other viral infections. How should I use this medicine? Take this medicine by mouth with a full glass of water. Follow the directions on the prescription label. This medicine can be taken with or without food. Take your medicine at regular intervals. Do not take your medicine more often than directed. Take all of your medicine as directed even if you think you are better. Do not skip doses or stop your medicine early. Talk to your horse rider regarding the use of this medicine in children. While this drug may be prescribed for selected conditions, precautions do apply. What side effects may I notice from receiving this medicine? Side effects that you should report to your doctor or health customer care team coach as soon as possible: allergic reactions like skin rash, itching or hives, swelling of the face, lips, or tongue breathing problems pain or trouble passing urine redness, blistering, peeling or loosening of the skin, including inside the mouth severe or watery diarrhea unusually weak or tired yellowing of the eyes, skin Side effects that usually do not require medical attention (report to your doctor or health customer care team coach if they continue or are bothersome): gas or heartburn genital or anal irritation headache joint or muscle pain nausea, vomiting What may interact with this medicine? probenecid some other antibiotics What if I miss a dose? If you miss a dose, take it as soon as you can. If it is almost time for your next dose, take only that dose. Do not take double or extra doses. There should be at least 4 to 6 hours between doses. Where should I keep my medicine? Keep out of the reach of children. Store at room temperature between 59 and 86 degrees F (15 and 30 degrees C). Throw away any unused medicine after the expiration date. What should I tell my health care provider before I take this medicine? They need to know if you have any of these conditions: kidney disease stomach or intestine problems, especially colitis an unusual or allergic reaction to cephalexin, other cephalosporins, penicillins, other antibiotics, medicines, foods, dyes or preservatives or trying to get breast-feeding What should I watch for while using this medicine? Tell your doctor or health customer care team coach if your symptoms do not begin to improve in a few days. Do not treat diarrhea with over the counter products. Contact your doctor if you have diarrhea that lasts more than 2 days or if it is severe and watery. If you have diabetes, you may get a false-positive result for sugar in your urine. Check with your doctor or health customer care team coach. You have been given the following additional information: Pyelonephritis, Female (Adult) Hydrocodone Bitartrate, Acetaminophen Oral tablet Cephalexin Monohydrate Oral tablet (Electronically signed by Mayte Meyer P.A.-C 02/12/2017 20:49)
--- NOTE | 2017-02-12 20:50 | ED MED RECONCILIATION SUMMARY ---
Patient: NICOLE LALA Medication Reconciliation Report [facility] VisitID: [id number] [place] [address] 76y, F Registration Date/Time: 02/12/2017 Weight: 109.7 kg Height/Length: 65 in. BMI: 40.3 ALLERGIES: Codeine, Gentamicin, Iodine, Vancomycin The patient's Home Medications are listed below: THE FOLLOWING MEDICATIONS NEED TO BE RECONCILED: Albuterol Sulfate HFA Inhalation 2 puffs, q 4-6 h Atenolol Oral (25 mg) 1 tablet, daily Cholecalciferol Oral (2000 unit) 1 tablet Cyanocobalamin Oral (5000 mcg) Desonide External (0.05 %) Elderberry Oral 2 tabs, daily, cold symptoms Furosemide Oral (20 mg) 1 tablet, daily Gatifloxacin Ophthalmic (0.5 %) Glycerin-Polysorbate 80 one drop, daily Hydrocodone-Acetaminophen Oral (5-325 mg) 1 tablet, 3x a day Hydrocortisone External (2.5 %), 2x a day Loperamide HCl Oral (2 mg) 1 tablet, daily Meclizine HCl Oral Methocarbamol Oral (750 mg) 1 tablet [place] 3 Oral Potassium Chloride Oral 10 meq, daily Prochlorperazine Maleate Oral (10 mg) 1 tablet, 3x a day Sertraline HCl Oral (100 mg) 1 tablet, 1.5x/day Tolterodine Tartrate Oral (1 mg) 1 tablet, 2x a day Vitamin c Oral Warfarin Sodium Oral 5 mg, daily, for DVT, PE The source(s) of the original Home Medication information: Not obtained. The following Medications were given to the patient in the Emergency Department: Dilaudid [IVP] IVP 0.5 mg, administered: 02/12/2017 6:17:00 PM Ceftriaxone [IVPB] IVPB bolus 0, then 2 gm 100 mL/hr, administered: 02/12/2017 8:06:00 PM Dilaudid [IVP] IVP 0.5 mg, administered: 02/12/2017 8:15:00 PM The following Medications were prescribed to the patient: Hydrocodone/APAP 5mg / 325mg: take 1 orally every 6 hours as needed for pain. Dispense fifteen (15). No refill. -- Mayte Meyer P.A.-C Cephalexin 500 mg: take 1 capsule orally every 8 hours for 10 days. No refill. -- Mayte Meyer P.A.-C
--- NOTE | 2017-02-12 20:50 | ED MED RECONCILIATION SUMMARY ---
Patient: NICOLE LALA Medication Reconciliation Report [facility] VisitID: [id number] [place] [address] 76y, F Registration Date/Time: 02/12/2017 Weight: 109.7 kg Height/Length: 65 in. BMI: 40.3 ALLERGIES: Codeine, Gentamicin, Iodine, Vancomycin The patient's Home Medications are listed below: THE FOLLOWING MEDICATIONS NEED TO BE RECONCILED: Albuterol Sulfate HFA Inhalation 2 puffs, q 4-6 h Atenolol Oral (25 mg) 1 tablet, daily Cholecalciferol Oral (2000 unit) 1 tablet Cyanocobalamin Oral (5000 mcg) Desonide External (0.05 %) Elderberry Oral 2 tabs, daily, cold symptoms Furosemide Oral (20 mg) 1 tablet, daily Gatifloxacin Ophthalmic (0.5 %) Glycerin-Polysorbate 80 one drop, daily Hydrocodone-Acetaminophen Oral (5-325 mg) 1 tablet, 3x a day Hydrocortisone External (2.5 %), 2x a day Loperamide HCl Oral (2 mg) 1 tablet, daily Meclizine HCl Oral Methocarbamol Oral (750 mg) 1 tablet [place] 3 Oral Potassium Chloride Oral 10 meq, daily Prochlorperazine Maleate Oral (10 mg) 1 tablet, 3x a day Sertraline HCl Oral (100 mg) 1 tablet, 1.5x/day Tolterodine Tartrate Oral (1 mg) 1 tablet, 2x a day Vitamin c Oral Warfarin Sodium Oral 5 mg, daily, for DVT, PE The source(s) of the original Home Medication information: Not obtained. The following Medications were given to the patient in the Emergency Department: Dilaudid [IVP] IVP 0.5 mg, administered: 02/12/2017 6:17:00 PM Ceftriaxone [IVPB] IVPB bolus 0, then 2 gm 100 mL/hr, administered: 02/12/2017 8:06:00 PM Dilaudid [IVP] IVP 0.5 mg, administered: 02/12/2017 8:15:00 PM The following Medications were prescribed to the patient: Hydrocodone/APAP 5mg / 325mg: take 1 orally every 6 hours as needed for pain. Dispense fifteen (15). No refill. -- Mayte Meyer P.A.-C Cephalexin 500 mg: take 1 capsule orally every 8 hours for 10 days. No refill. -- Mayet Meyer P.A.-C
--- NOTE | 2017-02-12 20:50 | ED MAR SUMMARY ---
..... Medication Administration Record [facility] [address] [place] [address] Patient: NICOLE LALA Visit ID: [id number] 76y, F Weight: 109.7 kg Height/Length: 65 in BMI: 40.3 ALLERGIES: Gentamicin, Vancomycin, Codeine, Iodine Given 18:17 02/12/2017 Samanta Novak RDaniel Medication Administered: DILAUDID [IVP] (HYDROMORPHONE HCL PF), Dose: 0.5 mg IVP over 1 minute(s), Site: #1 right forearm. Medication Ordered: Dilaudid IV 0.5 mg (HIGH ALERT MEDICATION, NOW). Start 20:06 02/12/2017 Carlo RDaniel, Stop 20:21 02/12/2017 Goran Matos Medication Administered: CEFTRIAXONE [IVPB], Dose: 2 gm IVPB over 30 minute(s), Rate: 100 mL/hr, Dispensed: 50 mL bag, Site: #1 right forearm. Medication Ordered: Ceftriaxone IV 2 gm/50mL (NOW). Given 20:15 02/12/2017 Goran Matos Medication Administered: DILAUDID [IVP] (HYDROMORPHONE HCL PF), Dose: 0.5 mg IVP over 1 minute(s), Site: #1 right forearm. Medication Ordered: Dilaudid IV 0.5 mg (HIGH ALERT MEDICATION, NOW).
--- NOTE | 2017-02-12 20:50 | ED DISCHARGE INSTRUCTIONS ---
Patient: NICOLE LALA General Instructions [facility] VisitID: [id number] [place] [address] 76y, F Registration Date/Time: 02/12/2017 Acute pyelonephritis INSTRUCTIONS Drink plenty of fluids. (repeat inr levels in 4-5 days, today 2.6). Warnings: Further evaluation is necessary. Prescription Medications: Hydrocodone/APAP 5mg / 325mg: take 1 orally every 6 hours as needed for pain. Dispense fifteen (15). No refill. Cephalexin 500 mg: take 1 capsule orally every 8 hours for 10 days. No refill. Follow-up: Follow up with your doctor in three. ADDITIONAL INFORMATION Kidney Infection [Adult, Female] An infection of the kidney is also called "pyelonephritis". It usually starts as a bladder infection ("cystitis") which spreads to the kidneys. Pyelonephritis is more serious than a bladder infection. It can cause severe illness if not treated properly. The usual symptoms include an aching pain in the back, side or lower abdomen. Other symptoms may include fever, chills, nausea, vomiting, an urge to urinate and a burning sensation when passing urine. Home Care: Stay home from work or school. Rest in bed until your fever breaks and you are feeling better. Drink lots of fluid (at least 6-8 glasses a day, unless you must restrict fluids for other medical reasons). This will force the medicine into your urinary system and flush the bacteria out of your body. Avoid sexual intercourse until you have finished all of your medicine and your symptoms have gone away. Avoid caffeine, alcohol and spicy foods which may irritate the kidney and bladder. You may use acetaminophen (Tylenol) or ibuprofen (Motrin, Advil) to control pain, unless another pain medicine was prescribed. [NOTE: If you have chronic liver or kidney disease or ever had a stomach ulcer or GI bleeding, talk with your doctor before using these medicines.] Follow Up with your doctor or as advised by our staff for a repeat urine test in 10 days. This will ensure that your infection is fully cleared. [NOTE: If you had an X-ray or CT scan, it will be reviewed by a specialist. You will be notified of any new findings that may affect your care.] Get Prompt Medical Attention if any of the following occur: Fever over 100.4F (38.0C) after 48 hours of treatment No improvement by the third day of treatment Increasing back or abdominal pain Repeated vomiting or inability to take oral medicine Weakness, dizziness or fainting Hydrocodone Bitartrate, Acetaminophen Oral tablet What is this medicine? ACETAMINOPHEN; HYDROCODONE (a set a QUE eneida fen; marlon droe KOE done) is a pain reliever. It is used to treat mild to moderate pain. How should I use this medicine? Take this medicine by mouth. Swallow it with a full glass of water. Follow the directions on the prescription label. If the medicine upsets your stomach, take the medicine with food or milk. Do not take more than you are told to take. Talk to your sales operations assistant regarding the use of this medicine in children. This medicine is not approved for use in children. What side effects may I notice from receiving this medicine? Side effects that you should report to your doctor or health critical care nurse practitioner as soon as possible: allergic reactions like skin rash, itching or hives, swelling of the face, lips, or tongue breathing problems confusion feeling faint or lightheaded, falls stomach pain yellowing of the eyes or skin Side effects that usually do not require medical attention (report to your doctor or health critical care nurse practitioner if they continue or are bothersome): nausea, vomiting stomach upset What may interact with this medicine? alcohol antihistamines isoniazid medicines for depression, anxiety, or psychotic disturbances medicines for sleep muscle relaxants naltrexone narcotic medicines (opiates) for pain phenobarbital ritonavir tramadol What if I miss a dose? If you miss a dose, take it as soon as you can. If it is almost time for your next dose, take only that dose. Do not take double or extra doses. Where should I keep my medicine? Keep out of the reach of children. This medicine can be abused. Keep your medicine in a safe place to protect it from theft. Do not share this medicine with anyone. Selling or giving away this medicine is dangerous and against the law. Store at room temperature between 15 and 30 degrees C (59 and 86 degrees F). Protect from light. Keep container tightly closed. Throw away any unused medicine after the expiration date. Discard unused medicine and used packaging carefully. Pets and children can be harmed if they find used or lost packages. What should I tell my health care provider before I take this medicine? They need to know if you have any of these conditions: brain tumor Crohn's disease, inflammatory bowel disease, or ulcerative colitis drink more than 3 alcohol-containing drinks per day drug abuse or addiction head injury heart or circulation problems kidney disease or problems going to the bathroom liver disease lung disease, asthma, or breathing problems an unusual or allergic reaction to acetaminophen, hydrocodone, other opioid analgesics, other medicines, foods, dyes, or preservatives or trying to get breast-feeding What should I watch for while using this medicine? Tell your doctor or health critical care nurse practitioner if your pain does not go away, if it gets worse, or if you have new or a different type of pain. You may develop tolerance to the medicine. Tolerance means that you will need a higher dose of the medicine for pain relief. Tolerance is normal and is expected if you take the medicine for a long time. Do not suddenly stop taking your medicine because you may develop a severe reaction. Your body becomes used to the medicine. This does NOT mean you are addicted. Addiction is a behavior related to getting and using a drug for a non-medical reason. If you have pain, you have a medical reason to take pain medicine. Your doctor will tell you how much medicine to take. If your doctor wants you to stop the medicine, the dose will be slowly lowered over time to avoid any side effects. You may get drowsy or dizzy when you first start taking the medicine or change doses. Do not drive, use machinery, or do anything that may be dangerous until you know how the medicine affects you. Stand or sit up slowly. There are different types of narcotic medicines (opiates) for pain. If you take more than one type at the same time, you may have more side effects. Give your health care provider a list of all medicines you use. Your doctor will tell you how much medicine to take. Do not take more medicine than directed. Call emergency for help if you have problems breathing. The medicine will cause constipation. Try to have a bowel movement at least every 2 to 3 days. If you do not have a bowel movement for 3 days, call your doctor or health critical care nurse practitioner. Too much acetaminophen can be very dangerous. Do not take Tylenol (acetaminophen) or medicines that contain acetaminophen with this medicine. Many non-prescription medicines contain acetaminophen. Always read the labels carefully. Cephalexin Monohydrate Oral tablet What is this medicine? CEPHALEXIN (sef a FABIAN in) is a cephalosporin antibiotic. It is used to treat certain kinds of bacterial infections It will not work for colds, flu, or other viral infections. How should I use this medicine? Take this medicine by mouth with a full glass of water. Follow the directions on the prescription label. This medicine can be taken with or without food. Take your medicine at regular intervals. Do not take your medicine more often than directed. Take all of your medicine as directed even if you think you are better. Do not skip doses or stop your medicine early. Talk to your sales operations assistant regarding the use of this medicine in children. While this drug may be prescribed for selected conditions, precautions do apply. What side effects may I notice from receiving this medicine? Side effects that you should report to your doctor or health critical care nurse practitioner as soon as possible: allergic reactions like skin rash, itching or hives, swelling of the face, lips, or tongue breathing problems pain or trouble passing urine redness, blistering, peeling or loosening of the skin, including inside the mouth severe or watery diarrhea unusually weak or tired yellowing of the eyes, skin Side effects that usually do not require medical attention (report to your doctor or health critical care nurse practitioner if they continue or are bothersome): gas or heartburn genital or anal irritation headache joint or muscle pain nausea, vomiting What may interact with this medicine? probenecid some other antibiotics What if I miss a dose? If you miss a dose, take it as soon as you can. If it is almost time for your next dose, take only that dose. Do not take double or extra doses. There should be at least 4 to 6 hours between doses. Where should I keep my medicine? Keep out of the reach of children. Store at room temperature between 59 and 86 degrees F (15 and 30 degrees C). Throw away any unused medicine after the expiration date. What should I tell my health care provider before I take this medicine? They need to know if you have any of these conditions: kidney disease stomach or intestine problems, especially colitis an unusual or allergic reaction to cephalexin, other cephalosporins, penicillins, other antibiotics, medicines, foods, dyes or preservatives or trying to get breast-feeding What should I watch for while using this medicine? Tell your doctor or health critical care nurse practitioner if your symptoms do not begin to improve in a few days. Do not treat diarrhea with over the counter products. Contact your doctor if you have diarrhea that lasts more than 2 days or if it is severe and watery. If you have diabetes, you may get a false-positive result for sugar in your urine. Check with your doctor or health critical care nurse practitioner. You have been given the following additional information: Pyelonephritis, Female (Adult) Hydrocodone Bitartrate, Acetaminophen Oral tablet Cephalexin Monohydrate Oral tablet (Electronically signed by Mayte Meyer P.A.-C 02/12/2017 20:49)
== END 2017-02-12 20:38 | disposition home or self-care (01) ==
LOC: ED SRH 17:02
DX: N10 Acute pyelonephritis (principal); I10 Essential (primary) hypertension; I50.9 Heart failure, unspecified; Z79.899 Other long term (current) drug therapy; Z79.891 Long term (current) use of opiate analgesic; Z79.51 Long term (current) use of inhaled steroids; Z88.8 Allergy status to other drugs, medicaments and biological substances; Z88.1 Allergy status to other antibiotic agents; Z91.041 Radiographic dye allergy status
CPT/HCPCS: 90004; 90100; 90148; 90469; 92235; 94001; 94060; 95059

== ENCOUNTER 2017-02-15 06:48 | Emergency (ER) | payer OTHER, MEDICARE ==
--- NOTE | 2017-02-15 08:20 | DIAGNOSTIC IMAGING REPORT ---
PROCEDURE: XR LUMBAR SPINE 2 OR 3 VIEWS INDICATION: TRAUMA/INJURY TECHNIQUE: Three views. COMPARISON: None. FINDINGS: Mild levoconvex thoracolumbar spine scoliosis. Grade 1 L3-4 and L4-5 anterolisthesis. No fracture. Severe L1-2, L2-3, mild L4-5 and moderate L5-S1 disc space narrowing. Prominent spurs. Pelvic and right upper quadrant surgical clips. IMPRESSION: 1. No acute changes 2. Severe degenerative changes with multilevel disc space narrowing and levoscoliosis 3. Grade 1 L3-4 and L4-5 anterolisthesis
--- NOTE | 2017-02-15 09:10 | ED CLINICAL REPORT ---
Clinical Report - Physicians/Mid Levels [facility] [address] [place] [address] 02/15/2017 6:49 [id number] Time Seen: 07:32 Apr 2016. Arrived- By private vehicle. Historian- patient. CPT: ER phys charges level 4 (#[id number]). HISTORY OF PRESENT ILLNESS Chief Complaint: FLANK PAIN. At its maximum, severity described as moderate. When seen in the E.D., severity described as severe. Modifying factors- worsened by movement. Relieved by rest. It is described as "pain" and sharp and it is described as located in the left flank and the left side of the back. 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 and is still present. The patient has had nausea. No vomiting or diarrhea. Similar symptoms previously: None. Recent medical care: The patient was seen recently at this facility in the emergency department (3 days ago). Seen for similar symptoms. Evaluation/treatment: labs- keflex and pain meds: Vicodin. Diagnosis: kidney infection. REVIEW OF SYSTEMS No constipation, black stools, hematemesis, difficulty with urination or pain with urination. No urinary frequency, fever, sore throat, chest pain or difficulty breathing. No cough, joint pain, skin rash or chills. The patient has had back pain. All systems otherwise negative, except as recorded above. PAST HISTORY Pyelonephritis. Hypertension. Migraine Headache. CHF. Multinodular goiter. Anxiety Reaction. Lumbar spinal stenosis. Impingement syndrome of shoulder region. Gerd. Depression. Pulmonary Embolism. Asplenia. GINNY. Lung nodule. Osteopenia. Asthma. --07:10 Crystal Pickett R.N. ADDITIONAL SURGERIES: Appendectomy. Cholecystectomy. Colectomy. Hysterectomy. Knee Surgery. Splenectomy. Tonsillectomy. SOCIAL HISTORY Never smoker. No alcohol use or drug use. ADDITIONAL NOTES The nursing notes have been reviewed. PHYSICAL EXAM Vital Signs: 02/15/2017 07:08 BP: 164/74. HR: 70. RR: 18. O2 saturation: 98%. Temp: 98.6 F. Pain level now: 05/16. Appearance: Alert. Appears to be in pain. Patient in moderate distress. Eyes: Pupils equal, round and reactive to light. Eyes normal inspection. ENT: Ears normal. Nose normal. Pharynx normal. Neck: Normal inspection. Neck supple. CVS: Normal heart rate and rhythm. Heart sounds normal. Pulses normal. Respiratory: No respiratory distress. Breath sounds normal. Chest nontender. Abdomen: Soft and nontender. Back: No CVA tenderness. (Tender over the left paralumbar soft tissue . Has a lot of guarding and pain with movement of the lumbar spine by ROM.). Skin: Skin warm. Normal skin color. No rash. Extremities: Extremities exhibit normal ROM. No lower extremity edema. Neuro: Oriented X 3. No motor deficit. No sensory deficit. LABS, X-RAYS, AND EKG Laboratory Tests: UA-Culture if indicated: (JAYMIE: 02/15/2017 06:50) ( [facility] 02/15/2017 08:27) Final results Test Result Flag Units (Reference) URINE COLOR YELLOW URINE APPEARANCE CLEAR URINE GLUCOSE NEGATIVE (NEGATIVE) URINE BILIRUBIN NEGATIVE (NEGATIVE) URINE KETONE NEGATIVE (NEGATIVE) URINE SPECIFIC GRAVITY 1.010 (1.010-1.030) URINE PH 5.5 (5.0-8.0) URINE PROTEIN NEGATIVE (NEGATIVE) URINE UROBILINOGEN 0.2 EU/dL (0.2-1.0) URINE NITRITE NEGATIVE (NEGATIVE) URINE BLOOD 1+ (NEGATIVE) URINE LEUK ESTERASE NEGATIVE (NEGATIVE) URINE RBC 1-3 rbc/hpf (0-1) URINE WBC 1-3 wbc/hpf (0-1) URINE EPITHELIAL CELLS 10-15 EPI/hpf (0-5) URINE BACTERIA TRACE (<1+) (NONE SEEN) URINE COMMENT CULT NOT INDICATED URINE CULTURES ARE SET-UP BASED ON THE FOLLOWING CRITERIA:POSITIVE NITRITEPOSITIVE LEUKOCYTE ESTERASEGREATER THAN 10 WHITE BLOOD CELLSMODERATE (2+) OR GREATER BACTERIA CBC w Diff: (JAYMIE: 02/15/2017 07:35) ( [facility] 02/15/2017 07:55) Final results Test Result Flag Units (Reference) WHITE BLOOD COUNT 11.5 K/uL (4.5-11.5) RED BLOOD COUNT 4.66 M/uL (4.00-5.20) HEMOGLOBIN 13.9 gm/dL (12.0-16.0) HEMATOCRIT 43.1 % (36.0-46.0) MEAN CELL VOLUME 93 fL (80-100) MEAN CORPUSCULAR HGB 30 pg (26-34) MEAN CORPUSCULAR HGB CONC 32 g/dL (31-37) RED CELL DISTRIBUTION WIDTH 15.8 H % (11.6-14.8) PLATELET COUNT 384 K/uL (150-400) NEUTROPHIL % 55.9 % (50-75) LYMPH % 35.6 % (25-40) MONO % 6.1 % (3-14) EOSINOPHIL % 1.6 % (0-4) BASOPHIL % 0.8 % (0-2) PT with INR: (JAYMIE: 02/15/2017 08:25) ( [facility] 02/15/2017 08:48) Final results Test Result Flag Units (Reference) INR 2.2 H (0.8-1.2) Low Intensity Therapy: INR 1.5-2.0 PT range 18.5-23.1Mod.Intensity Therapy: INR 2.0-3.0 PT range 23.1-31.5High Intensity Therapy: INR 2.5-3.5 PT range 27.4-35.5High Intensity Therapy 2: INR 3.0-4.0 PT range 31.5-39.3 [id number]: (JAYMIE: 02/15/2017 07:39) ( [facility] 02/15/2017 09:24) Final results Test Result Flag Units (Reference) PROCALCITONIN <0.5 ng/mL (0-0.5) PCT Concentration: Interpretation : Risk/option for action PCT <=0.5 ng/mL : Systemic : Low risk forinfection(sepsis): progression to severeis not likely. : systemic infection.Local bacterial : CAUTION-PCT levelsinfection is : below 0.5 ng/mL do notpossible. : exclude an infection,because localizedinfections (withoutsystemic signs) may beassociated with suchlow levels. If PCT ismeasured very earlyafter a bacterialchallenge (usually <6hours), these valuesmay still be low. Inthis case PCT shouldbe re-assessed 6-24hours later. PCT >0.5 and : Systemic infection: Moderate risk for<= 2 ng/mL : (sepsis) is : progression to severepossible, but : systemic infection.other conditions : The patient should beare known to : closely monitoredelevate PCT. : both clinically andby re-assessing PCTwithin 6-24 hours. PCT > 2 ng/mL : Systemic infection: High risk for(sepsis) is likely: progression to severeunless other : systemic infection.causes are known. : PCT >= 10 ng/mL : Important systemic: High likelihood ofinflammatory : severe sepsis orresponse, almost : septic shock.exclusively due to:severe bacterial :sepsis or septic :shock. : CMP: (JAYMIE: 02/15/2017 07:35) ( [facility] 02/15/2017 08:08) Final results Test Result Flag Units (Reference) GLUCOSE 108 mg/dL (70-110) BUN 10 mg/dL (7-18) CREATININE 0.8 mg/dL (0.6-1.3) Estimated GFR >60 mL/min Estimated GFR- >60 mL/min Note: Persistent reduction over 3 months in eGFR<60 mL/min/1.73 m2 defines CKD. Patients with eGFR values>=60 mL/min/1.73 m2 may also have CKD if evidence ofpersistent proteinuria. Additional information may be foundat www.kidney.org. SODIUM 139 mmol/L (136-145) POTASSIUM 4.0 mmol/L (3.5-5.1) CHLORIDE 103 mmol/L (98-107) CARBON DIOXIDE 29 mmol/L (21-32) CALCIUM 9.2 mg/dL (8.5-10.1) TOTAL PROTEIN 7.7 g/dL (6.4-8.2) ALBUMIN 3.3 g/dL (3.3-5.0) BILIRUBIN, TOTAL 0.4 mg/dL (0.0-1.0) ALKALINE PHOSPHATASE 102 U/L (46-116) AST (SGOT) 24 U/L (15-37) ALT (SGPT) 30 U/L (12-78) LIPASE 78 U/L (73-393) AMYLASE 37 U/L (25-115) . PROGRESS AND PROCEDURES Course of Care: Pt appears to have jerry from the lumbar spine. She notes sitting down hard a few days ago when she developed acute pain. This pain appears to be radicular from the upper lumbar spine. Pt also has a UTI from recent lab and it appears to be resolving. IV NS Zofr an 4 mg IV Dilaudid 0.5mg IV times 2 Solumedrol 60 mg IV Percocet 1 po. Patient/family counseled. Disposition: Discharged. Condition: stable and improved. 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 Resolving UTI. INSTRUCTIONS No strenuous activity. Drink plenty of fluids. Warnings: Further evaluation is necessary. SEDATIVE MEDICATION: You were given sedative medication during your visit. Do not drive or operate dangerous machinery. GENERAL WARNINGS: Return or contact your physician immediately if your condition worsens or changes unexpectedly, if not improving as expected, or if other problems arise. Your Current Medications: CONTINUE TAKING THE FOLLOWING MEDICATIONS: Albuterol Sulfate HFA Inhalation : 2 puffs q 4-6 h, prn. Atenolol Oral : Tablet 25 mg, 1 tablet daily. Cephalexin Oral : Capsule 500 mg, 1 capsule 3x a day. Cholecalciferol Oral : Tablet 2000 unit, 1 tablet, prn. Cyanocobalamin Oral : Lozenge 5000 mcg. Desonide External : Cream 0.05 %. Elderberry Oral : 2 tabs daily, cold symptoms. Furosemide Oral : Tablet 20 mg, 1 tablet daily. Gatifloxacin Ophthalmic : Solution 0.5 %, prn. Glycerin-Polysorbate 80* : one drop daily. Hydrocodone-Acetaminophen Oral : Tablet 5-325 mg, 1 tablet 3x a day, prn. Hydrocortisone External : Cream 2.5 %, 2x a day. Loperamide HCl Oral : Tablet 2 mg, 1 tablet daily. Meclizine HCl Oral. Methocarbamol Oral : Tablet 750 mg, 1 tablet, prn. [place] 3 Oral. Potassium Chloride Oral : 10 meq daily. Prochlorperazine Maleate Oral : Tablet 10 mg, 1 tablet 3x a day, prn. Sertraline HCl Oral : Tablet 100 mg, 1 tablet 1.5x/day. Tolterodine Tartrate Oral : Tablet 1 mg, 1 tablet 2x a day. Vitamin c Oral. Warfarin Sodium Oral : 5 mg daily, for DVT, PE. Prescription Medications: Oxycodone/APAP 5 mg/325 mg: take 1-2 tablets orally every 4 hours as needed for pain. Dispense thirty (30). No refill. Robaxin 750 mg: Take 2 orally every 6 hours as needed for muscle spasm. Dispense thirty (30). No refills. Substitution is permissible. prednisone 40 mg po q day for 2 days. Follow-up: Follow up with your doctor. Call for the next available appointment. Understanding of the discharge instructions verbalized by patient. (Electronically signed by Bry Joel MD 02/17/2017 18:22)
--- NOTE | 2017-02-15 09:10 | ED ORDER SUMMARY ---
..... Patient: NICOLE LALA OrderSheet [facility] VisitID: [id number] [place] [address] 76y, F Registration Date/Time: 02/15/2017 ORDER SHEET Weight: 108.8 kg (stated) Allergies: Codeine, Gentamicin, Iodine, Vancomycin GENERAL ORDERS: UA-Culture if indicated Urgent (07:21 02/15/2017 JBoardley R.N. per protocol) (Ack 7:25 Vasiliy) (7:27 JSanders R.N.) CBC w Diff Urgent (07:30 02/15/2017 JSanders R.N. per protocol) (7:40 JSanders R.N.) CMP Urgent (07:30 02/15/2017 JSanders R.N. per protocol) (7:40 JSanders R.N.) PT with INR Urgent (07:30 02/15/2017 JSanders R.N. per protocol) (7:40 JSanders R.N.) Amylase Urgent (07:30 02/15/2017 JSanders R.N. per protocol) (7:40 JSanders R.N.) Lipase Urgent (07:30 02/15/2017 JSanders R.N. per protocol) (7:40 JSanders R.N.) Lumbar Spine 2 or 3V Urgent (07:37 02/15/2017 Shikha SUERO) (8:08 JSanders R.N.) PCT (Procalcitonin) Urgent (08:24 02/15/2017 JBoardley R.N. verbal order read back to Shikha SUERO) (Ack 8:29 Vasiliy) (8:30 JBoardley R.N.) MEDICATION ORDERS: Oxycodone-APAP PO 5/325 mg (NOW) (09:03 02/15/2017 Shikha SUERO) (9:19 JSanders R.N.) IV FLUIDS: IV Saline Lock (07:30 02/15/2017 JSanders R.N. per protocol) (7:31 JSanders R.N.) Ondansetron IV 4 mg (NOW) (07:35 02/15/2017 Wilfred Zimmer per protocol) (7:40 Wilfred Jade.Jensen) Dilaudid IV 0.5 mg (NOW) (07:37 02/15/2017 Shikha SUERO) (7:44 Wilfred Jade.NAudrey) Dilaudid IV 0.5 mg (HIGH ALERT MEDICATION, NOW) (08:23 02/15/2017 Blane Zimmer verbal order read back to Shikha SUERO) (8:29 Blane LagunaNAudrey) Solu-MEDROL IV 60 mg (NOW) (09:02 02/15/2017 Shikha SUERO) (9:22 Wilfred Zimmer) ORDER SHEET NOTES: [Electronically signed by Crystal Pickett R.N. (10:01 02/15/2017)] [Electronically signed by Bry Joel MD (18:22 02/17/2017)] [Electronically locked/signed by Crystal Pickett R.N. (10:02/15/2017)]
--- NOTE | 2017-02-15 09:10 | ED CLINICAL REPORT ---
Clinical Report - Physicians/Mid Levels [facility] [address] [place] [address] 02/15/2017 6:49 [id number] Time Seen: 07:32 Apr 2016. Arrived- By private vehicle. Historian- patient. CPT: ER phys charges level 4 (#[id number]). HISTORY OF PRESENT ILLNESS Chief Complaint: FLANK PAIN. At its maximum, severity described as moderate. When seen in the E.D., severity described as severe. Modifying factors- worsened by movement. Relieved by rest. It is described as "pain" and sharp and it is described as located in the left flank and the left side of the back. This started about 4 days PLUSH BRUSHER; Sat down at home and developed left flank pain. and is still present. The patient has had nausea. No vomiting or diarrhea. Similar symptoms previously: None. Recent medical care: The patient was seen recently at this facility in the emergency department (3 days ago). Seen for similar symptoms. Evaluation/treatment: labs- keflex and pain meds: Vicodin. Diagnosis: kidney infection. REVIEW OF SYSTEMS No constipation, black stools, hematemesis, difficulty with urination or pain with urination. No urinary frequency, fever, sore throat, chest pain or difficulty breathing. No cough, joint pain, skin rash or chills. The patient has had back pain. All systems otherwise negative, except as recorded above. PAST HISTORY Pyelonephritis. Hypertension. Migraine Headache. CHF. Multinodular goiter. Anxiety Reaction. Lumbar spinal stenosis. Impingement syndrome of shoulder region. Gerd. Depression. Pulmonary Embolism. Asplenia. GINNY. Lung nodule. Osteopenia. Asthma. --07:10 Crystal Pickett R.N. ADDITIONAL SURGERIES: Appendectomy. Cholecystectomy. Colectomy. Hysterectomy. Knee Surgery. Splenectomy. Tonsillectomy. SOCIAL HISTORY Never smoker. No alcohol use or drug use. ADDITIONAL NOTES The nursing notes have been reviewed. PHYSICAL EXAM Vital Signs: 02/15/2017 07:08 BP: 164/74. HR: 70. RR: 18. O2 saturation: 98%. Temp: 98.6 F. Pain level now: 05/16. Appearance: Alert. Appears to be in pain. Patient in moderate distress. Eyes: Pupils equal, round and reactive to light. Eyes normal inspection. ENT: Ears normal. Nose normal. Pharynx normal. Neck: Normal inspection. Neck supple. CVS: Normal heart rate and rhythm. Heart sounds normal. Pulses normal. Respiratory: No respiratory distress. Breath sounds normal. Chest nontender. Abdomen: Soft and nontender. Back: No CVA tenderness. (Tender over the left paralumbar soft tissue . Has a lot of guarding and pain with movement of the lumbar spine by ROM.). Skin: Skin warm. Normal skin color. No rash. Extremities: Extremities exhibit normal ROM. No lower extremity edema. Neuro: Oriented X 3. No motor deficit. No sensory deficit. LABS, X-RAYS, AND EKG Laboratory Tests: UA-Culture if indicated: (JAYMIE: 02/15/2017 06:50) ( [facility] 02/15/2017 08:27) Final results Test Result Flag Units (Reference) URINE COLOR YELLOW URINE APPEARANCE CLEAR URINE GLUCOSE NEGATIVE (NEGATIVE) URINE BILIRUBIN NEGATIVE (NEGATIVE) URINE KETONE NEGATIVE (NEGATIVE) URINE SPECIFIC GRAVITY 1.010 (1.010-1.030) URINE PH 5.5 (5.0-8.0) URINE PROTEIN NEGATIVE (NEGATIVE) URINE UROBILINOGEN 0.2 EU/dL (0.2-1.0) URINE NITRITE NEGATIVE (NEGATIVE) URINE BLOOD 1+ (NEGATIVE) URINE LEUK ESTERASE NEGATIVE (NEGATIVE) URINE RBC 1-3 rbc/hpf (0-1) URINE WBC 1-3 wbc/hpf (0-1) URINE EPITHELIAL CELLS 10-15 EPI/hpf (0-5) URINE BACTERIA TRACE (<1+) (NONE SEEN) URINE COMMENT CULT NOT INDICATED URINE CULTURES ARE SET-UP BASED ON THE FOLLOWING CRITERIA:POSITIVE NITRITEPOSITIVE LEUKOCYTE ESTERASEGREATER THAN 10 WHITE BLOOD CELLSMODERATE (2+) OR GREATER BACTERIA CBC w Diff: (JAYMIE: 02/15/2017 07:35) ( [facility] 02/15/2017 07:55) Final results Test Result Flag Units (Reference) WHITE BLOOD COUNT 11.5 K/uL (4.5-11.5) RED BLOOD COUNT 4.66 M/uL (4.00-5.20) HEMOGLOBIN 13.9 gm/dL (12.0-16.0) HEMATOCRIT 43.1 % (36.0-46.0) MEAN CELL VOLUME 93 fL (80-100) MEAN CORPUSCULAR HGB 30 pg (26-34) MEAN CORPUSCULAR HGB CONC 32 g/dL (31-37) RED CELL DISTRIBUTION WIDTH 15.8 H % (11.6-14.8) PLATELET COUNT 384 K/uL (150-400) NEUTROPHIL % 55.9 % (50-75) LYMPH % 35.6 % (25-40) MONO % 6.1 % (3-14) EOSINOPHIL % 1.6 % (0-4) BASOPHIL % 0.8 % (0-2) PT with INR: (JAYMIE: 02/15/2017 08:25) ( [facility] 02/15/2017 08:48) Final results Test Result Flag Units (Reference) INR 2.2 H (0.8-1.2) Low Intensity Therapy: INR 1.5-2.0 PT range 18.5-23.1Mod.Intensity Therapy: INR 2.0-3.0 PT range 23.1-31.5High Intensity Therapy: INR 2.5-3.5 PT range 27.4-35.5High Intensity Therapy 2: INR 3.0-4.0 PT range 31.5-39.3 [id number]: (JAYMIE: 02/15/2017 07:39) ( [facility] 02/15/2017 09:24) Final results Test Result Flag Units (Reference) PROCALCITONIN <0.5 ng/mL (0-0.5) PCT Concentration: Interpretation : Risk/option for action PCT <=0.5 ng/mL : Systemic : Low risk forinfection(sepsis): progression to severeis not likely. : systemic infection.Local bacterial : CAUTION-PCT levelsinfection is : below 0.5 ng/mL do notpossible. : exclude an infection,because localizedinfections (withoutsystemic signs) may beassociated with suchlow levels. If PCT ismeasured very earlyafter a bacterialchallenge (usually <6hours), these valuesmay still be low. Inthis case PCT shouldbe re-assessed 6-24hours later. PCT >0.5 and : Systemic infection: Moderate risk for<= 2 ng/mL : (sepsis) is : progression to severepossible, but : systemic infection.other conditions : The patient should beare known to : closely monitoredelevate PCT. : both clinically andby re-assessing PCTwithin 6-24 hours. PCT > 2 ng/mL : Systemic infection: High risk for(sepsis) is likely: progression to severeunless other : systemic infection.causes are known. : PCT >= 10 ng/mL : Important systemic: High likelihood ofinflammatory : severe sepsis orresponse, almost : septic shock.exclusively due to:severe bacterial :sepsis or septic :shock. : CMP: (JAYMIE: 02/15/2017 07:35) ( [facility] 02/15/2017 08:08) Final results Test Result Flag Units (Reference) GLUCOSE 108 mg/dL (70-110) BUN 10 mg/dL (7-18) CREATININE 0.8 mg/dL (0.6-1.3) Estimated GFR >60 mL/min Estimated GFR- >60 mL/min Note: Persistent reduction over 3 months in eGFR<60 mL/min/1.73 m2 defines CKD. Patients with eGFR values>=60 mL/min/1.73 m2 may also have CKD if evidence ofpersistent proteinuria. Additional information may be foundat www.kidney.org. SODIUM 139 mmol/L (136-145) POTASSIUM 4.0 mmol/L (3.5-5.1) CHLORIDE 103 mmol/L (98-107) CARBON DIOXIDE 29 mmol/L (21-32) CALCIUM 9.2 mg/dL (8.5-10.1) TOTAL PROTEIN 7.7 g/dL (6.4-8.2) ALBUMIN 3.3 g/dL (3.3-5.0) BILIRUBIN, TOTAL 0.4 mg/dL (0.0-1.0) ALKALINE PHOSPHATASE 102 U/L (46-116) AST (SGOT) 24 U/L (15-37) ALT (SGPT) 30 U/L (12-78) LIPASE 78 U/L (73-393) AMYLASE 37 U/L (25-115) . PROGRESS AND PROCEDURES Course of Care: Pt appears to have jerry from the lumbar spine. She notes sitting down hard a few days ago when she developed acute pain. This pain appears to be radicular from the upper lumbar spine. Pt also has a UTI from recent lab and it appears to be resolving. IV NS Zofr an 4 mg IV Dilaudid 0.5mg IV times 2 Solumedrol 60 mg IV Percocet 1 po. Patient/family counseled. Disposition: Discharged. Condition: stable and improved. 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 Resolving UTI. INSTRUCTIONS No strenuous activity. Drink plenty of fluids. Warnings: Further evaluation is necessary. SEDATIVE MEDICATION: You were given sedative medication during your visit. Do not drive or operate dangerous machinery. GENERAL WARNINGS: Return or contact your physician immediately if your condition worsens or changes unexpectedly, if not improving as expected, or if other problems arise. Your Current Medications: CONTINUE TAKING THE FOLLOWING MEDICATIONS: Albuterol Sulfate HFA Inhalation : 2 puffs q 4-6 h, prn. Atenolol Oral : Tablet 25 mg, 1 tablet daily. Cephalexin Oral : Capsule 500 mg, 1 capsule 3x a day. Cholecalciferol Oral : Tablet 2000 unit, 1 tablet, prn. Cyanocobalamin Oral : Lozenge 5000 mcg. Desonide External : Cream 0.05 %. Elderberry Oral : 2 tabs daily, cold symptoms. Furosemide Oral : Tablet 20 mg, 1 tablet daily. Gatifloxacin Ophthalmic : Solution 0.5 %, prn. Glycerin-Polysorbate 80* : one drop daily. Hydrocodone-Acetaminophen Oral : Tablet 5-325 mg, 1 tablet 3x a day, prn. Hydrocortisone External : Cream 2.5 %, 2x a day. Loperamide HCl Oral : Tablet 2 mg, 1 tablet daily. Meclizine HCl Oral. Methocarbamol Oral : Tablet 750 mg, 1 tablet, prn. [place] 3 Oral. Potassium Chloride Oral : 10 meq daily. Prochlorperazine Maleate Oral : Tablet 10 mg, 1 tablet 3x a day, prn. Sertraline HCl Oral : Tablet 100 mg, 1 tablet 1.5x/day. Tolterodine Tartrate Oral : Tablet 1 mg, 1 tablet 2x a day. Vitamin c Oral. Warfarin Sodium Oral : 5 mg daily, for DVT, PE. Prescription Medications: Oxycodone/APAP 5 mg/325 mg: take 1-2 tablets orally every 4 hours as needed for pain. Dispense thirty (30). No refill. Robaxin 750 mg: Take 2 orally every 6 hours as needed for muscle spasm. Dispense thirty (30). No refills. Substitution is permissible. prednisone 40 mg po q day for 2 days. Follow-up: Follow up with your doctor. Call for the next available appointment. Understanding of the discharge instructions verbalized by patient. (Electronically signed by Bry Joel MD 02/17/2017 18:22)
--- NOTE | 2017-02-15 09:10 | ED NURSING NOTES ---
Clinical Report - Nurses [facility] [address] [place] [address] 02/15/2017 6:49 Patient: NICOLE LALA TRIAGE Triage time 07:Feb 15 2017. Acuity: LEVEL 3. Chief Complaint: (Left flank pain radiating to abd and back). 07:14 02/15/17. SEPSIS SCREEN: Sepsis Screen. Negative (no infection suspected/documented). --07:14 Crystal Pickett R.N. 07:08 02/15/17. BP: 164/74 (large adult cuff) taken on the left arm, while lying. HR: 70. RR: 18. O2 saturation: 98% on room air. Temp: 98.6 F (oral). Pain level now: 05/16. --07:14 Crystal Pickett R.N. Weight: 108.8 kg stated. Height/Length: 65 inches Per Patient. BMI: 40. --07:10 Crystal Pickett R.N. Medications Albuterol Sulfate HFA Inhalation 2 puffs, q 4-6 h as needed. Atenolol Oral (Tablet 25 mg) 1 tablet, daily. Cholecalciferol Oral (Tablet 2000 unit) 1 tablet, as needed. Cyanocobalamin Oral (Lozenge 5000 mcg). Desonide External (Cream 0.05 %). Elderberry Oral 2 tabs, daily, cold symptoms. Furosemide Oral (Tablet 20 mg) 1 tablet, daily. Gatifloxacin Ophthalmic (Solution 0.5 %), as needed. Glycerin-Polysorbate 80 one drop, daily. Hydrocodone-Acetaminophen Oral (Tablet 5-325 mg) 1 tablet, 3x a day as needed. Hydrocortisone External (Cream 2.5 %), 2x a day. --07:09 Crystal Pickett R.N. Loperamide HCl Oral (Tablet 2 mg) 1 tablet, daily. Meclizine HCl Oral. Methocarbamol Oral (Tablet 750 mg) 1 tablet, as needed. [place] 3 Oral. Potassium Chloride Oral 10 meq, daily. Prochlorperazine Maleate Oral (Tablet 10 mg) 1 tablet, 3x a day as needed. Sertraline HCl Oral (Tablet 100 mg) 1 tablet, 1.5x/day. Tolterodine Tartrate Oral (Tablet 1 mg) 1 tablet, 2x a day. Vitamin c Oral. Warfarin Sodium Oral 5 mg, daily, for DVT, PE. --07:09 Crystal Pickett R.N. Cephalexin Oral (Capsule 500 mg) 1 capsule, 3x a day. --07:13 Crystal Pickett R.N. Allergies Codeine. Gentamicin. Iodine. Vancomycin. --07:09 Crystal Pickett R.N. History Historian: patient. Primary physician (JESSICA PARKER). Onset. (started Tuesday). She has had abdominal pain. She has had moderate left-sided flank pain. Last oral intake by patient was (cracker and cheese 0300). Treatment TEST PREPARER: (hydrocodone 0300). PAST MEDICAL HX: Hypertension. Immunizations: up-to-date. The patient is post-menopausal. Has had a hysterectomy. SOCIAL HX: Never smoker. No alcohol use or drug use. No infectious disease exposure. ABUSE ASSESSMENT: No report of abuse. --07:14 Crystal Pickett R.N. PROBLEMS: Pyelonephritis. Hypertension. Migraine Headache. CHF. Multinodular goiter. Anxiety Reaction. Lumbar spinal stenosis. Impingement syndrome of shoulder region. Gerd. Depression. Pulmonary Embolism. Asplenia. GINNY. Lung nodule. Osteopenia. Asthma. --07:10 Crystal Pickett R.N. ADDITIONAL SURGERIES: Appendectomy. Cholecystectomy. Colectomy. Hysterectomy. Knee Surgery. Splenectomy. Tonsillectomy. --07:10 Crystal Pickett R.N. Interventions ID band on patient. To treatment room. --07:14 Crystal Pickett R.N. PHYSICAL ASSESSMENT 07:15 02/15/17. To room via wheelchair. Patient gowned. GENERAL / NEURO / PSYCH: Alert. Oriented X 4. Appears in pain. HEENT: Mucous membranes are pink. RESPIRATORY: Respirations not labored. Breath sounds within normal limits. CVS: Normal heart rate and rhythm. Capillary refill less than 2 seconds. GI / : Abdomen soft. Guarding present in the left upper quadrant. Bowel sounds within normal limits. SKIN: Skin is warm. --07:15 Crystal Pickett R.N. NURSING PROGRESS NOTES 07:15 02/15/17. The plan of care for this patient has been created. Monitoring of patient in place. Patient gowned. Head of bed elevated. Reassurance given. Two patient identifiers checked. Call light placed in reach. Side rails up x 1. Bed placed in lowest position. Brakes of bed on. Patient ready for evaluation- chart flagged and ED physician notified. --07:15 Crystal Pickett R.N. 07:22 02/15/17. Patient ID band checked for patient name and birthdate. Clean catch urine collected; sample sent to lab for urinalysis and culture. Specimen labeled in the presence of the patient. --07:22 Beto Bhatti R.N. 07:26 02/15/2017 Site #1 started via IV in the right forearm with an 20g angiocath; two attempts. Saline lock flushed with 10 mL saline. --07:31 Crystal Pickett R.N. 07:40 02/15/2017 Ondansetron (Ondansetron HCl) IVP 4 mg given over 1 minute(s) via site #1. Allergies verified and confirmed 5 rights. IV patency established. IV site checked: no pain, redness, or swelling. IV flushed thoroughly pre- and post-medication administration. IVP given by RN. --07:40 Crystal Pickett R.N. 07:44 02/15/2017 Dilaudid (HYDROmorphone HCl PF) IVP 0.5 mg given over 1 minute(s) via site #1. Allergies verified, confirmed 5 rights and sedative warning given to the patient. IV patency established. IV site checked: no pain, redness, or swelling. IV flushed thoroughly pre- and post-medication administration. IVP given by RN. --07:44 Crystal Pickett R.N. 07:44 02/15/17. BP: 135/67 (large adult cuff) taken on the left arm, while lying. HR: 67. RR: 18. O2 saturation: 95% on room air. Pain level now: 05/16. --07:45 Crystal Pickett R.N. Patient ID band checked for patient name and birthdate: patient confirmed. Blood samples drawn from the right antecubital space by tech per protocol ; labeled in presence of the patient: rainbow set and red, green, purple and blue top. --07:48 Cony Margo, ARAM Tech1 Patient transported to radiology by stretcher with tech. (07:51 Feb 15 2017). --07:51 Crystal Pickett R.N. <<STRICKEN ENTRY-- 08:07 02/15/2017 Dilaudid IVP Response: no adverse reaction pain is improving. Symptoms have improved the patient feels better. --08:07 Crystal Pickett R.N. --END STRIKE>> Other. wrong response --08:08 Crystal Pickett R.N. 08:02/15/2017 Dilaudid IVP Response: no adverse reaction pain is improving. Symptoms are the same. The patient feels the same. --08:08 Crystal Pickett R.N. 08:02/15/2017 Ondansetron IVP Response: no adverse reaction pain is improving. Symptoms have improved the patient feels better. --08:08 Crystal Pickett R.N. Patient returned from radiology by stretcher with tech. (:Feb 15 2017). --08:08 Crystal Pickett R.N. 08:10 02/15/17. ( X-ray completed). --08:10 Beto Bhatti R.N. 08:29 02/15/2017 Dilaudid (HYDROmorphone HCl PF) IVP 0.5 mg given over 2 minute(s) via site #1. Allergies verified, confirmed 5 rights and sedative warning given to the patient. IV patency established. IV site checked: no pain, redness, or swelling. IV flushed thoroughly pre- and post-medication administration. IVP given by RN. --08:29 Beto Bhatti R.N. 08:29 02/15/17. BP: 127/58. HR: 73. RR: 14. O2 saturation: 100% on room air. Pain level now: 05/16. --08:30 Beto Bhatti R.N. 08:29 02/15/17. --08:30 Beto Bhatti R.N. 08:30 02/15/17. Patient and family informed about reason for wait and about plan of care. --08:30 Beto Bhatti R.N. 08:30 02/15/17. Pulse oximeter and NIBP monitor placed on patient; monitor alarms on. --08:30 Beto Bhatti R.N. 09:18 02/15/2017 Oxycodone-APAP (Oxycodone-Acetaminophen) PO 5/325 mg Tablets 1 tab given. Allergies verified, confirmed 5 rights and sedative warning given to the patient. --09:19 Crystal Pickett R.N. 09:22 02/15/2017 SOLU-MEDROL (MethylPREDNISolone Sodium Succ) IVP 60 mg given over 2 minute(s) via site #1. Allergies verified and confirmed 5 rights. IV patency established. IV site checked: no pain, redness, or swelling. IV flushed thoroughly pre- and post-medication administration. IVP given by RN. --09: Crystal Pickett R.N. DISPOSITION / DISCHARGE 09:02/15/2017 Site #1 removed upon discharge. Bandaid applied. --:27 Crystal Pickett R.N. 09:30 02/15/17. Condition at departure: improved. No learning barriers present. Discharge instructions provided and reviewed with the patient and spouse. Reviewed medication(s) side effects, precautions and dosing information. Activity restrictions reviewed (No strenuous activity today). Patient verbalized understanding. Written instructions provided in Persian. The patient was discharged by the physician. She was discharged home and accompanied by spouse. She left the Emergency Department ambulatory and via private vehicle. Spouse driving. --09:30 Crystal Pickett R.N. 09:22 02/15/17. BP: 129/61 (large adult cuff) taken on the left arm, while sitting. HR: 71. RR: 16. O2 saturation: 94% on room air. Temp: 97.6 F (oral). Pain level now: 12/17. --09:30 Crystal Pickett R.N. Departure time: :Feb 15 2017. --09:34 Crystal Pickett R.N. Locked/Released at 02/15/2017 10:01 by Crystal Pickett R.N.
--- NOTE | 2017-02-15 09:10 | ED ORDER SUMMARY ---
..... Patient: NICOLE LALA OrderSheet [facility] VisitID: [id number] [place] [address] 76y, F Registration Date/Time: 02/15/2017 ORDER SHEET Weight: 108.8 kg (stated) Allergies: Codeine, Gentamicin, Iodine, Vancomycin GENERAL ORDERS: UA-Culture if indicated Urgent (07:21 02/15/2017 JBoardley R.N. per protocol) (Ack 7:25 Vasiliy) (7:27 JSanders R.N.) CBC w Diff Urgent (07:30 02/15/2017 JSanders R.N. per protocol) (7:40 JSanders R.N.) CMP Urgent (07:30 02/15/2017 JSanders R.N. per protocol) (7:40 JSanders R.N.) PT with INR Urgent (07:30 02/15/2017 JSanders R.N. per protocol) (7:40 JSanders R.N.) Amylase Urgent (07:30 02/15/2017 JSanders R.N. per protocol) (7:40 JSanders R.N.) Lipase Urgent (07:30 02/15/2017 JSanders R.N. per protocol) (7:40 JSanders R.N.) Lumbar Spine 2 or 3V Urgent (07:37 02/15/2017 Shikha SUERO) (8:08 JSanders R.N.) PCT (Procalcitonin) Urgent (08:24 02/15/2017 JBoardley R.N. verbal order read back to Shikha SUERO) (Ack 8:29 Vasiliy) (8:30 JBoardley R.N.) MEDICATION ORDERS: Oxycodone-APAP PO 5/325 mg (NOW) (09:03 02/15/2017 Shikha SUERO) (9:19 JSanders R.N.) IV FLUIDS: IV Saline Lock (07:30 02/15/2017 JSanders R.N. per protocol) (7:31 JSanders R.N.) Ondansetron IV 4 mg (NOW) (07:35 02/15/2017 Wilfred Zimmer per protocol) (7:40 Wilfred Jade.Jensen) Dilaudid IV 0.5 mg (NOW) (07:37 02/15/2017 Shikha SUERO) (7:44 Wilfred Jade.NAudrey) Dilaudid IV 0.5 mg (HIGH ALERT MEDICATION, NOW) (08:23 02/15/2017 Blane Zimmer verbal order read back to Shikha SUERO) (8:29 Blane LagunaNAudrey) Solu-MEDROL IV 60 mg (NOW) (09:02 02/15/2017 Shikha SUERO) (9:22 Wilfred Zimmer) ORDER SHEET NOTES: [Electronically signed by Crystal Pickett R.N. (10:01 02/15/2017)] [Electronically signed by Bry Joel MD (18:22 02/17/2017)] [Electronically locked/signed by Crystal Pickett R.N. (10:02/15/2017)]
--- NOTE | 2017-02-17 18:23 | ED DISCHARGE INSTRUCTIONS ---
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 Resolving UTI. INSTRUCTIONS No strenuous activity. Drink plenty of fluids. Warnings: Further evaluation is necessary. SEDATIVE MEDICATION: You were given sedative medication during your visit. Do not drive or operate dangerous machinery. GENERAL WARNINGS: Return or contact your physician immediately if your condition worsens or changes unexpectedly, if not improving as expected, or if other problems arise. Your Current Medications: CONTINUE TAKING THE FOLLOWING MEDICATIONS: Albuterol Sulfate HFA Inhalation : 2 puffs q 4-6 h, prn. Atenolol Oral : Tablet 25 mg, 1 tablet daily. Cephalexin Oral : Capsule 500 mg, 1 capsule 3x a day. Cholecalciferol Oral : Tablet 2000 unit, 1 tablet, prn. Cyanocobalamin Oral : Lozenge 5000 mcg. Desonide External : Cream 0.05 %. Elderberry Oral : 2 tabs daily, cold symptoms. Furosemide Oral : Tablet 20 mg, 1 tablet daily. Gatifloxacin Ophthalmic : Solution 0.5 %, prn. Glycerin-Polysorbate 80* : one drop daily. Hydrocodone-Acetaminophen Oral : Tablet 5-325 mg, 1 tablet 3x a day, prn. Hydrocortisone External : Cream 2.5 %, 2x a day. Loperamide HCl Oral : Tablet 2 mg, 1 tablet daily. Meclizine HCl Oral. Methocarbamol Oral : Tablet 750 mg, 1 tablet, prn. [place] 3 Oral. Potassium Chloride Oral : 10 meq daily. Prochlorperazine Maleate Oral : Tablet 10 mg, 1 tablet 3x a day, prn. Sertraline HCl Oral : Tablet 100 mg, 1 tablet 1.5x/day. Tolterodine Tartrate Oral : Tablet 1 mg, 1 tablet 2x a day. Vitamin c Oral. Warfarin Sodium Oral : 5 mg daily, for DVT, PE. Prescription Medications: Oxycodone/APAP 5 mg/325 mg: take 1-2 tablets orally every 4 hours as needed for pain. Dispense thirty (30). No refill. Robaxin 750 mg: Take 2 orally every 6 hours as needed for muscle spasm. Dispense thirty (30). No refills. Substitution is permissible. prednisone 40 mg po q day for 2 days. Follow-up: Follow up with your doctor. Call for the next available appointment. Understanding of the discharge instructions verbalized by patient. ADDITIONAL INFORMATION Oxycodone Hydrochloride, Acetaminophen Oral tablet What is this medicine? ACETAMINOPHEN; OXYCODONE (a set a QUE eneida fen; ox i KOE done) is a pain reliever. It is used to treat mild to moderate pain. How should I use this medicine? Take this medicine by mouth with a full glass of water. Follow the directions on the prescription label. Take your medicine at regular intervals. Do not take your medicine more often than directed. Talk to your measuring clerk regarding the use of this medicine in children. Special care may be needed. Patients over 65 years old may have a stronger reaction and need a smaller dose. What side effects may I notice from receiving this medicine? Side effects that you should report to your doctor or health critical care physician as soon as possible: allergic reactions like skin rash, itching or hives, swelling of the face, lips, or tongue breathing difficulties, wheezing confusion light headedness or fainting spells severe stomach pain yellowing of the skin or the whites of the eyes Side effects that usually do not require medical attention (report to your doctor or health critical care physician if they continue or are bothersome): dizziness drowsiness nausea vomiting What may interact with this medicine? alcohol antihistamines barbiturates like amobarbital, butalbital, butabarbital, methohexital, pentobarbital, phenobarbital, thiopental, and secobarbital benztropine drugs for bladder problems like solifenacin, trospium, oxybutynin, tolterodine, hyoscyamine, and methscopolamine drugs for breathing problems like ipratropium and tiotropium drugs for certain stomach or intestine problems like propantheline, homatropine methylbromide, glycopyrrolate, atropine, belladonna, and dicyclomine general anesthetics like etomidate, ketamine, nitrous oxide, propofol, desflurane, enflurane, halothane, isoflurane, and sevoflurane medicines for depression, anxiety, or psychotic disturbances medicines for sleep muscle relaxants naltrexone narcotic medicines (opiates) for pain phenothiazines like perphenazine, thioridazine, chlorpromazine, mesoridazine, fluphenazine, prochlorperazine, promazine, and trifluoperazine scopolamine tramadol trihexyphenidyl What if I miss a dose? If you miss a dose, take it as soon as you can. If it is almost time for your next dose, take only that dose. Do not take double or extra doses. Where should I keep my medicine? Keep out of the reach of children. This medicine can be abused. Keep your medicine in a safe place to protect it from theft. Do not share this medicine with anyone. Selling or giving away this medicine is dangerous and against the law. Store at room temperature between 20 and 25 degrees C (68 and 77 degrees F). Keep container tightly closed. Protect from light. This medicine may cause accidental overdose and if it is taken by other adults, children, or pets. Flush any unused medicine down the toilet to reduce the chance of harm. Do not use the medicine after the expiration date. What should I tell my health care provider before I take this medicine? They need to know if you have any of these conditions: brain tumor Crohn's disease, inflammatory bowel disease, or ulcerative colitis drink more than 3 alcohol containing drinks per day drug abuse or addiction head injury heart or circulation problems kidney disease or problems going to the bathroom liver disease lung disease, asthma, or breathing problems an unusual or allergic reaction to acetaminophen, oxycodone, other opioid analgesics, other medicines, foods, dyes, or preservatives or trying to get breast-feeding What should I watch for while using this medicine? Tell your doctor or health critical care physician if your pain does not go away, if it gets worse, or if you have new or a different type of pain. You may develop tolerance to the medicine. Tolerance means that you will need a higher dose of the medication for pain relief. Tolerance is normal and is expected if you take this medicine for a long time. Do not suddenly stop taking your medicine because you may develop a severe reaction. Your body becomes used to the medicine. This does NOT mean you are addicted. Addiction is a behavior related to getting and using a drug for a non-medical reason. If you have pain, you have a medical reason to take pain medicine. Your doctor will tell you how much medicine to take. If your doctor wants you to stop the medicine, the dose will be slowly lowered over time to avoid any side effects. You may get drowsy or dizzy. Do not drive, use machinery, or do anything that needs mental alertness until you know how this medicine affects you. Do not stand or sit up quickly, especially if you are an older patient. This reduces the risk of dizzy or fainting spells. Alcohol may interfere with the effect of this medicine. Avoid alcoholic drinks. There are different types of narcotic medicines (opiates) for pain. If you take more than one type at the same time, you may have more side effects. Give your health care provider a list of all medicines you use. Your doctor will tell you how much medicine to take. Do not take more medicine than directed. Call emergency for help if you have problems breathing. The medicine will cause constipation. Try to have a bowel movement at least every 2 to 3 days. If you do not have a bowel movement for 3 days, call your doctor or health critical care physician. Do not take Tylenol (acetaminophen) or medicines that have acetaminophen with this medicine. Too much acetaminophen can be very dangerous. Many nonprescription medicines contain acetaminophen. Always read the labels carefully to avoid taking more acetaminophen. You have been given the following additional information: Oxycodone Hydrochloride, Acetaminophen Oral tablet No strenuous activity. (Electronically signed by Bry Joel MD 02/17/2017 18:22)
--- NOTE | 2017-02-17 18:23 | ED DISCHARGE INSTRUCTIONS ---
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 Resolving UTI. INSTRUCTIONS No strenuous activity. Drink plenty of fluids. Warnings: Further evaluation is necessary. SEDATIVE MEDICATION: You were given sedative medication during your visit. Do not drive or operate dangerous machinery. GENERAL WARNINGS: Return or contact your physician immediately if your condition worsens or changes unexpectedly, if not improving as expected, or if other problems arise. Your Current Medications: CONTINUE TAKING THE FOLLOWING MEDICATIONS: Albuterol Sulfate HFA Inhalation : 2 puffs q 4-6 h, prn. Atenolol Oral : Tablet 25 mg, 1 tablet daily. Cephalexin Oral : Capsule 500 mg, 1 capsule 3x a day. Cholecalciferol Oral : Tablet 2000 unit, 1 tablet, prn. Cyanocobalamin Oral : Lozenge 5000 mcg. Desonide External : Cream 0.05 %. Elderberry Oral : 2 tabs daily, cold symptoms. Furosemide Oral : Tablet 20 mg, 1 tablet daily. Gatifloxacin Ophthalmic : Solution 0.5 %, prn. Glycerin-Polysorbate 80* : one drop daily. Hydrocodone-Acetaminophen Oral : Tablet 5-325 mg, 1 tablet 3x a day, prn. Hydrocortisone External : Cream 2.5 %, 2x a day. Loperamide HCl Oral : Tablet 2 mg, 1 tablet daily. Meclizine HCl Oral. Methocarbamol Oral : Tablet 750 mg, 1 tablet, prn. [place] 3 Oral. Potassium Chloride Oral : 10 meq daily. Prochlorperazine Maleate Oral : Tablet 10 mg, 1 tablet 3x a day, prn. Sertraline HCl Oral : Tablet 100 mg, 1 tablet 1.5x/day. Tolterodine Tartrate Oral : Tablet 1 mg, 1 tablet 2x a day. Vitamin c Oral. Warfarin Sodium Oral : 5 mg daily, for DVT, PE. Prescription Medications: Oxycodone/APAP 5 mg/325 mg: take 1-2 tablets orally every 4 hours as needed for pain. Dispense thirty (30). No refill. Robaxin 750 mg: Take 2 orally every 6 hours as needed for muscle spasm. Dispense thirty (30). No refills. Substitution is permissible. prednisone 40 mg po q day for 2 days. Follow-up: Follow up with your doctor. Call for the next available appointment. Understanding of the discharge instructions verbalized by patient. ADDITIONAL INFORMATION Oxycodone Hydrochloride, Acetaminophen Oral tablet What is this medicine? ACETAMINOPHEN; OXYCODONE (a set a QUE eneida fen; ox i KOE done) is a pain reliever. It is used to treat mild to moderate pain. How should I use this medicine? Take this medicine by mouth with a full glass of water. Follow the directions on the prescription label. Take your medicine at regular intervals. Do not take your medicine more often than directed. Talk to your frame cleaner regarding the use of this medicine in children. Special care may be needed. Patients over 65 years old may have a stronger reaction and need a smaller dose. What side effects may I notice from receiving this medicine? Side effects that you should report to your doctor or health day care director as soon as possible: allergic reactions like skin rash, itching or hives, swelling of the face, lips, or tongue breathing difficulties, wheezing confusion light headedness or fainting spells severe stomach pain yellowing of the skin or the whites of the eyes Side effects that usually do not require medical attention (report to your doctor or health day care director if they continue or are bothersome): dizziness drowsiness nausea vomiting What may interact with this medicine? alcohol antihistamines barbiturates like amobarbital, butalbital, butabarbital, methohexital, pentobarbital, phenobarbital, thiopental, and secobarbital benztropine drugs for bladder problems like solifenacin, trospium, oxybutynin, tolterodine, hyoscyamine, and methscopolamine drugs for breathing problems like ipratropium and tiotropium drugs for certain stomach or intestine problems like propantheline, homatropine methylbromide, glycopyrrolate, atropine, belladonna, and dicyclomine general anesthetics like etomidate, ketamine, nitrous oxide, propofol, desflurane, enflurane, halothane, isoflurane, and sevoflurane medicines for depression, anxiety, or psychotic disturbances medicines for sleep muscle relaxants naltrexone narcotic medicines (opiates) for pain phenothiazines like perphenazine, thioridazine, chlorpromazine, mesoridazine, fluphenazine, prochlorperazine, promazine, and trifluoperazine scopolamine tramadol trihexyphenidyl What if I miss a dose? If you miss a dose, take it as soon as you can. If it is almost time for your next dose, take only that dose. Do not take double or extra doses. Where should I keep my medicine? Keep out of the reach of children. This medicine can be abused. Keep your medicine in a safe place to protect it from theft. Do not share this medicine with anyone. Selling or giving away this medicine is dangerous and against the law. Store at room temperature between 20 and 25 degrees C (68 and 77 degrees F). Keep container tightly closed. Protect from light. This medicine may cause accidental overdose and if it is taken by other adults, children, or pets. Flush any unused medicine down the toilet to reduce the chance of harm. Do not use the medicine after the expiration date. What should I tell my health care provider before I take this medicine? They need to know if you have any of these conditions: brain tumor Crohn's disease, inflammatory bowel disease, or ulcerative colitis drink more than 3 alcohol containing drinks per day drug abuse or addiction head injury heart or circulation problems kidney disease or problems going to the bathroom liver disease lung disease, asthma, or breathing problems an unusual or allergic reaction to acetaminophen, oxycodone, other opioid analgesics, other medicines, foods, dyes, or preservatives or trying to get breast-feeding What should I watch for while using this medicine? Tell your doctor or health day care director if your pain does not go away, if it gets worse, or if you have new or a different type of pain. You may develop tolerance to the medicine. Tolerance means that you will need a higher dose of the medication for pain relief. Tolerance is normal and is expected if you take this medicine for a long time. Do not suddenly stop taking your medicine because you may develop a severe reaction. Your body becomes used to the medicine. This does NOT mean you are addicted. Addiction is a behavior related to getting and using a drug for a non-medical reason. If you have pain, you have a medical reason to take pain medicine. Your doctor will tell you how much medicine to take. If your doctor wants you to stop the medicine, the dose will be slowly lowered over time to avoid any side effects. You may get drowsy or dizzy. Do not drive, use machinery, or do anything that needs mental alertness until you know how this medicine affects you. Do not stand or sit up quickly, especially if you are an older patient. This reduces the risk of dizzy or fainting spells. Alcohol may interfere with the effect of this medicine. Avoid alcoholic drinks. There are different types of narcotic medicines (opiates) for pain. If you take more than one type at the same time, you may have more side effects. Give your health care provider a list of all medicines you use. Your doctor will tell you how much medicine to take. Do not take more medicine than directed. Call emergency for help if you have problems breathing. The medicine will cause constipation. Try to have a bowel movement at least every 2 to 3 days. If you do not have a bowel movement for 3 days, call your doctor or health day care director. Do not take Tylenol (acetaminophen) or medicines that have acetaminophen with this medicine. Too much acetaminophen can be very dangerous. Many nonprescription medicines contain acetaminophen. Always read the labels carefully to avoid taking more acetaminophen. You have been given the following additional information: Oxycodone Hydrochloride, Acetaminophen Oral tablet No strenuous activity. (Electronically signed by Bry Joel MD 02/17/2017 18:22)
--- NOTE | 2017-02-17 18:23 | ED MAR SUMMARY ---
..... Medication Administration Record [facility] [address] [place] [address] Patient: NICOLE LALA Visit ID: [id number] 76y, F Weight: 108.8 kg Height/Length: 65 in BMI: 40 ALLERGIES: Codeine, Gentamicin, Iodine, Vancomycin Given 07:40 02/15/2017 Crystal Pickett R.N. Medication Administered: ONDANSETRON [IVP] (ONDANSETRON HCL), Dose: 4 mg IVP over 1 minute(s), Site: #1 right forearm. Medication Ordered: Ondansetron IV 4 mg (NOW). Given 07:44 02/15/2017 Crystal Pickett R.N. Medication Administered: DILAUDID [IVP] (HYDROMORPHONE HCL PF), Dose: 0.5 mg IVP over 1 minute(s), Site: #1 right forearm. Medication Ordered: Dilaudid IV 0.5 mg (NOW). Given 08:29 02/15/2017 Beto Bhatti R.N. Medication Administered: DILAUDID [IVP] (HYDROMORPHONE HCL PF), Dose: 0.5 mg IVP over 2 minute(s), Site: #1 right forearm. Medication Ordered: Dilaudid IV 0.5 mg (HIGH ALERT MEDICATION, NOW). Given 09:18 02/15/2017 Crystal Pickett R.N. Medication Administered: OXYCODONE-APAP [PO] (OXYCODONE-ACETAMINOPHEN), Dose: 1 tab 5/325 mg Tablets PO. Medication Ordered: Oxycodone-APAP PO 5/325 mg (NOW). Given 09:22 02/15/2017 Crystal Pickett R.N. Medication Administered: SOLU-MEDROL [IVP] (METHYLPREDNISOLONE SODIUM SUCC), Dose: 60 mg IVP over 2 minute(s), Site: #1 right forearm. Medication Ordered: Solu-MEDROL IV 60 mg (NOW).
--- NOTE | 2017-02-17 18:23 | ED MAR SUMMARY ---
..... Medication Administration Record [facility] [address] [place] [address] Patient: NICOLE LALA Visit ID: [id number] 76y, F Weight: 108.8 kg Height/Length: 65 in BMI: 40 ALLERGIES: Codeine, Gentamicin, Iodine, Vancomycin Given 07:40 02/15/2017 Crystal Pickett R.N. Medication Administered: ONDANSETRON [IVP] (ONDANSETRON HCL), Dose: 4 mg IVP over 1 minute(s), Site: #1 right forearm. Medication Ordered: Ondansetron IV 4 mg (NOW). Given 07:44 02/15/2017 Crystal Pickett R.N. Medication Administered: DILAUDID [IVP] (HYDROMORPHONE HCL PF), Dose: 0.5 mg IVP over 1 minute(s), Site: #1 right forearm. Medication Ordered: Dilaudid IV 0.5 mg (NOW). Given 08:29 02/15/2017 Beto Bhatti R.N. Medication Administered: DILAUDID [IVP] (HYDROMORPHONE HCL PF), Dose: 0.5 mg IVP over 2 minute(s), Site: #1 right forearm. Medication Ordered: Dilaudid IV 0.5 mg (HIGH ALERT MEDICATION, NOW). Given 09:18 02/15/2017 Crystal Pickett R.N. Medication Administered: OXYCODONE-APAP [PO] (OXYCODONE-ACETAMINOPHEN), Dose: 1 tab 5/325 mg Tablets PO. Medication Ordered: Oxycodone-APAP PO 5/325 mg (NOW). Given 09:22 02/15/2017 Crystal Pickett R.N. Medication Administered: SOLU-MEDROL [IVP] (METHYLPREDNISOLONE SODIUM SUCC), Dose: 60 mg IVP over 2 minute(s), Site: #1 right forearm. Medication Ordered: Solu-MEDROL IV 60 mg (NOW).
--- NOTE | 2017-02-17 18:23 | ED MED RECONCILIATION SUMMARY ---
Patient: NICOLE LALA Medication Reconciliation Report [facility] VisitID: [id number] [place] [address] 76y, F Registration Date/Time: 02/15/2017 Weight: 108.8 kg Height/Length: 65 in. BMI: 40.0 ALLERGIES: Codeine, Gentamicin, Iodine, Vancomycin The patient's Home Medications are listed below: CONTINUE TAKING THE FOLLOWING MEDICATIONS: Albuterol Sulfate HFA Inhalation 2 puffs, q 4-6 h Atenolol Oral (25 mg) 1 tablet, daily Cephalexin Oral (500 mg) 1 capsule, 3x a day Cholecalciferol Oral (2000 unit) 1 tablet Cyanocobalamin Oral (5000 mcg) Desonide External (0.05 %) Elderberry Oral 2 tabs, daily, cold symptoms Furosemide Oral (20 mg) 1 tablet, daily Gatifloxacin Ophthalmic (0.5 %) Glycerin-Polysorbate 80 one drop, daily Hydrocodone-Acetaminophen Oral (5-325 mg) 1 tablet, 3x a day Hydrocortisone External (2.5 %), 2x a day Loperamide HCl Oral (2 mg) 1 tablet, daily Meclizine HCl Oral Methocarbamol Oral (750 mg) 1 tablet [place] 3 Oral Potassium Chloride Oral 10 meq, daily Prochlorperazine Maleate Oral (10 mg) 1 tablet, 3x a day Sertraline HCl Oral (100 mg) 1 tablet, 1.5x/day Tolterodine Tartrate Oral (1 mg) 1 tablet, 2x a day Vitamin c Oral Warfarin Sodium Oral 5 mg, daily, for DVT, PE The source(s) of the original Home Medication information: Not obtained. The following Medications were given to the patient in the Emergency Department: Ondansetron [IVP] IVP 4 mg, administered: 02/15/2017 7:40:00 AM Dilaudid [IVP] IVP 0.5 mg, administered: 02/15/2017 7:44:00 AM Dilaudid [IVP] IVP 0.5 mg, administered: 02/15/2017 8:29:00 AM Oxycodone-APAP [PO] PO 1 tab, administered: 02/15/2017 9:18:00 AM SOLU-MEDROL [IVP] IVP 60 mg, administered: 02/15/2017 9:22:00 AM The following Medications were prescribed to the patient: prednisone 40 mg po q day for 2 days. -- Bry Joel MD Oxycodone/APAP 5 mg/325 mg: take 1-2 tablets orally every 4 hours as needed for pain. Dispense thirty (30). No refill. -- Bry Joel MD Robaxin 750 mg: Take 2 orally every 6 hours as needed for muscle spasm. Dispense thirty (30). No refills. Substitution is permissible. -- Bry Joel MD
--- NOTE | 2017-02-17 18:23 | ED MED RECONCILIATION SUMMARY ---
Patient: NICOLE LALA Medication Reconciliation Report [facility] VisitID: [id number] [place] [address] 76y, F Registration Date/Time: 02/15/2017 Weight: 108.8 kg Height/Length: 65 in. BMI: 40.0 ALLERGIES: Codeine, Gentamicin, Iodine, Vancomycin The patient's Home Medications are listed below: CONTINUE TAKING THE FOLLOWING MEDICATIONS: Albuterol Sulfate HFA Inhalation 2 puffs, q 4-6 h Atenolol Oral (25 mg) 1 tablet, daily Cephalexin Oral (500 mg) 1 capsule, 3x a day Cholecalciferol Oral (2000 unit) 1 tablet Cyanocobalamin Oral (5000 mcg) Desonide External (0.05 %) Elderberry Oral 2 tabs, daily, cold symptoms Furosemide Oral (20 mg) 1 tablet, daily Gatifloxacin Ophthalmic (0.5 %) Glycerin-Polysorbate 80 one drop, daily Hydrocodone-Acetaminophen Oral (5-325 mg) 1 tablet, 3x a day Hydrocortisone External (2.5 %), 2x a day Loperamide HCl Oral (2 mg) 1 tablet, daily Meclizine HCl Oral Methocarbamol Oral (750 mg) 1 tablet [place] 3 Oral Potassium Chloride Oral 10 meq, daily Prochlorperazine Maleate Oral (10 mg) 1 tablet, 3x a day Sertraline HCl Oral (100 mg) 1 tablet, 1.5x/day Tolterodine Tartrate Oral (1 mg) 1 tablet, 2x a day Vitamin c Oral Warfarin Sodium Oral 5 mg, daily, for DVT, PE The source(s) of the original Home Medication information: Not obtained. The following Medications were given to the patient in the Emergency Department: Ondansetron [IVP] IVP 4 mg, administered: 02/15/2017 7:40:00 AM Dilaudid [IVP] IVP 0.5 mg, administered: 02/15/2017 7:44:00 AM Dilaudid [IVP] IVP 0.5 mg, administered: 02/15/2017 8:29:00 AM Oxycodone-APAP [PO] PO 1 tab, administered: 02/15/2017 9:18:00 AM SOLU-MEDROL [IVP] IVP 60 mg, administered: 02/15/2017 9:22:00 AM The following Medications were prescribed to the patient: prednisone 40 mg po q day for 2 days. -- Bry Joel MD Oxycodone/APAP 5 mg/325 mg: take 1-2 tablets orally every 4 hours as needed for pain. Dispense thirty (30). No refill. -- Bry Joel MD Robaxin 750 mg: Take 2 orally every 6 hours as needed for muscle spasm. Dispense thirty (30). No refills. Substitution is permissible. -- Bry Joel MD
== END 2017-02-15 09:34 | disposition home or self-care (01) ==
LOC: ED SRH 06:48
DX: M47.26 Other spondylosis with radiculopathy, lumbar region (principal); N39.0 Urinary tract infection, site not specified; I10 Essential (primary) hypertension; K21.9 Gastro-esophageal reflux disease without esophagitis; J45.909 Unspecified asthma, uncomplicated; Z79.84 Long term (current) use of oral hypoglycemic drugs; Z79.899 Other long term (current) drug therapy; Z88.1 Allergy status to other antibiotic agents; Z88.5 Allergy status to narcotic agent; Z88.8 Allergy status to other drugs, medicaments and biological substances
CPT/HCPCS: 90004; 90074; 90100; 92235; 92530; 93004; 94060; 95059